=== PATIENT | female | born 1980 | race Caucasian/White ===

== ENCOUNTER 2021-01-23 16:10 | Emergency (ER) | payer OTHER ==
--- OUTSIDE RECORDS SUMMARY | 2021-01-23 16:13 | XMS REPORT | Continuity of Care Document ---
:[address] [facility] t Address [address] [place] [address] Dr. Tanner [address] [place] [id number] Care Team Providers Name Role Phone UNKNOWN Primary Care Physician Unavailable Problems This patient has no known problems. Allergies, Adverse Reactions, Alerts This patient has no known allergies or adverse reactions. Medications This patient has no known medications. Procedures This patient has no known procedures. Encounters Start End Encounter Admission Attending Care Care Encounter Source Date/Time Date/Time Type Type Clinicians Facility Department ID 2016-02-24 Inpatient C [facility] MED [id number] St. 16:45:00 [facility] Results This patient has no known results.
[2021-01-23 17:37] LABS: Urine Blood Trace-intact (Negative); Urine Glucose Negative (Negative); Urine Protein Negative (Negative); Urine Specific Gravity 1.015 (1.005-1.030)
[2021-01-23 17:56] LABS: Barbiturates NEGATIVE (NEGATIVE); Benzodiazepines NEGATIVE (NEGATIVE); Cocaine NEGATIVE (NEGATIVE); METHAMPHETAM NEGATIVE (NEGATIVE); Methadone NEGATIVE (NEGATIVE); Opiates NEGATIVE (NEGATIVE); Phencyclidine NEGATIVE (NEGATIVE); THC Cannibis NEGATIVE (NEGATIVE)
[2021-01-23 20:18] LABS: Absolute Lymphocytes (CBC) 1.4 K/uL (0.7-4.9); Basophils % 0.6 % (0-1.3); Hematocrit 38.2 % (36.0-45.0); Lymphocytes % 11.8 % (15.3-44.8); MPV 7.7 fL (7.6-11.3); RBC Red Blood Cell Count 3.74 M/uL (3.86-4.86)
[2021-01-23] MEDS ORDERED: LORAZEPAM 1 MG TABLET ONE (20:39)
[2021-01-23 21:18] LABS: Protime INR 0.97
[2021-01-23 21:42] LABS: ALT/SGPT 26 U/L (12-78); AST/SGOT 9 U/L (15-37); Albumin 3.6 g/dL (3.4-5.0); Alkaline Phosphatase 95 U/L (45-117); BUN Blood Urea Nitrogen 8 mg/dL (7-18); Bicarbonate 24 mmol/L (21-32); Bilirubin Direct < 0.1 mg/dL (0-0.2); Bilirubin Total 0.2 mg/dL (0.2-1.0); Glucose Level 94 mg/dL (74-106); Potassium 3.9 mmol/L (3.5-5.1); Protein, Total 7.1 g/dL (6.4-8.2); Sodium Level 143 mmol/L (136-145)
[2021-01-23 21:52] LABS: Lithium 0.8 mmol/L (0.6-1.2); Salicylates Level 7.8 mg/dL (2.8-20)
--- NOTE | 2021-01-24 01:19 | ER ---
Nurse's Notes [facility] Name: Shira Byers Age: 40 yrs Sex: Female : 1980 Arrival Date: 01/23/2021 Time: 16:17 Bed 15 Private MD: Diagnosis: Psychosis, Delusions Presentation: 01/23 17:05 Chief complaint: Patient states: "They got her on some psych medications, and they ss weren't working. They then changed it to Invega and Risperidone, but she isn't due for her next injection for 2 weeks and I don't think she can make it. She has been saying she chopped off my cousin's baby's head and put it in the closet, and she has never said stuff like that" Pt denies SI/HI at this time, but had believed she had killed the baby until she saw the baby today. Coronavirus screen: Client denies travel out of the [place] in the last 14 days. Ebola Screen: Patient denies exposure to infectious person. Patient denies travel to an Ebola-affected area in the 21 days before illness onset. Initial Sepsis Screen: Does the patient meet any 2 criteria? No. Patient's initial sepsis screen is negative. Does the patient have a suspected source of infection? No. Patient's initial sepsis screen is negative. Risk Assessment: Do you want to hurt yourself or someone else? Patient reports no desire to harm self or others. Onset of symptoms was December 2020. 17:05 Method Of Arrival: Ambulatory ss 17:05 Acuity: ADILSON 2 ss 22:28 Note Pt medicated with home night time meds witnessed by this RN. 600 mg [place] and 15 df1 mg Buspar. 23:30 Note Pt on phone for assessment with [facility]. df1 01/24 00:[address] Michele at bedside to discuss inpatient treatment. Pt is agreeable. df1 00:34 Note Pt given box lunch. df1 05:31 Note Nurse to nurse report given. Pt resting with eyes closed. Family at bedside. df1 06:31 Note Report given to Jeni at [facility]. Pt is accepted. Bed assignment upon 1 arrival. Triage Assessment: 01/23 21:03 General: Appears in no apparent distress. Behavior is cooperative, anxious. Pain: df1 Denies pain. 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 - Social history:: Smoking status: Patient reports the use of cigarette tobacco products, smokes three packs cigarettes per day. Screenin:03 Abuse screen: Denies threats or abuse. Nutritional screening: No deficits noted. df1 Tuberculosis screening: No symptoms or risk factors identified. Fall Risk None identified. Assessment: 01/24 00:32 General: Appears uncomfortable, Behavior is anxious. Pain: Denies pain. Neuro: No df1 deficits noted. Cardiovascular: No deficits noted. Respiratory: Airway is patent Trachea midline Respiratory effort is even, unlabored, Respiratory pattern is regular, symmetrical. GI: No deficits noted. : No deficits noted. EENT: No deficits noted. Derm: No deficits noted. Musculoskeletal: No deficits noted. 07:46 Reassessment: Patient AAO X 3, sitting up in bed, pleasant, cooperative and sl2 conversational. Patient denies any untoward symptoms at this time. Family present at bedside. Awaiting transportation for psychiatric transfer. 09:24 Reassessment: Nursing report given to Mita Godfrey at [facility] for possible transfer sl2 to that facility for psychiatric care and management of this patient. Psych: 01/23 21:07 [place] Suicide Severity Screening: In the past month, have you wished you were df1 or wished you could go to sleep and not wake up? Patient responds "No." "In the past month, have you actually had any thoughts of killing yourself?" Patient responds "no." "In your lifetime, have you ever done anything, started to do anything, or prepared to do anything to end your life?" Patient responds "no.". Subjective: Patient's mood is Pt states she is anxious with racing thoughts. Pt states concern for "the world" and comparing herself to "God". Pt given 1 mg Ativan PO for anxiety. Pt has not slept in 2 days. Objective: Patient is restless, Speech is normal, Affect is appropriate. Interventions: Removed personal items and placed in bag. Patient placed in hospital gown. Searched person for dangerous items. Urine collected and sent for urine drug test. Safety Checks: Personal items have been removed. Door is open. Visitors are present. Pt denies substance abuse. Commitment: Patient will be a voluntary commitment. Vital Signs: 17:05 BP 137 / 88; Pulse 109; Resp 18; Temp 97.3(TE); Pulse Ox 100% on R/A; Weight 76.2 kg; ss Height 5 ft. 2 in. (157.48 cm); Pain 0/10; 01/24 00:14 BP 136 / 86 LA; Pulse 93; Resp 20; Temp 99.1(O); Pulse Ox 99% on R/A; cs8 01/23 17:05 Body Mass Index 30.73 (76.20 kg, 157.48 cm) ED Course: 01/23 16:17 Patient arrived in ED. mr 17:09 Triage completed. ss 17:09 Arm band placed on right wrist. ss 19:28 Yulia Mann is Primary Nurse. df1 19:29 Bhupendra Michele MD is Attending Physician. mh7 21:02 Acetaminophen Sent. df1 21:02 Basic Metabolic Panel Sent. df1 21:02 ETOH Level Sent. df1 21:02 Hepatic Function Sent. df1 21:02 PT-INR Sent. df1 21:02 Ptt, Activated Sent. df1 21:02 Salicylate Sent. df1 21:03 Patient has correct armband on for positive identification. Placed in gown. Bed in low df1 position. Call light in reach. Side rails up X 1. Adult w/ patient. 21:03 No provider procedures requiring assistance completed. df1 01/24 03:40 SARS-COV-2 RT PCR Sent. df1 12:12 Patient did not have IV access during this emergency room visit. sl2 Administered Medications: 01/23 20:45 Drug: Ativan (LORazepam) 1 mg Route: PO; df1 01/24 09:26 Follow up: Response: No adverse reaction sl2 Outcome: 01:18 ER care complete, transfer ordered by . vijay 12:11 Transferred by ground EMS Note: Psychiatric facility sl2 12:11 Condition: stable 12:11 Discharge instructions given to patient, family, Instructed on the need for transfer, Demonstrated understanding of instructions, follow-up care. 12:12 Patient left the ED. sl2 Signatures: Agata RodríguezLa, RN RN Lois Morley 8 Bhupendra Michele MD MD [facility] Yulia Mann df1 Aminata Rick RN RN sl2 Corrections: (The following items were deleted from the chart) 01/23 21:13 21:02 LITHIUM+C.LAB.BRZ drawn and sent. df1 EDMS 01/24 06:31 01/23 21:04 Home Meds: oxcarbazipine; df1 df1 01/24 06:31 01/23 21:04 Home Meds: hydrozyzine; df1 df1 01/24 06:31 01/23 21:04 Home Meds: fluphenazine HCl 10 mg Oral tab 1 tab 2 times; df1 df1
--- NOTE | 2021-01-24 01:19 | EDPHYS ---
Physician Documentation [facility] Name: Shira Byers Age: 40 yrs Sex: Female : 1980 Arrival Date: 01/23/2021 Time: 16:17 Bed 15 Private MD: ED Physician Bhupendra Michele HPI: 01/23 20:08 This 40 yrs old Female presents to ER via Ambulatory with complaints of Mental mh7 Evaluation. 20:08 The patient presents to the emergency department with psychosis, has experienced mh7 auditory hallucinations, voices are telling patient to cause harm to someone else, has experienced visual hallucinations. 20:08 Onset: The symptoms/episode began/occurred 1 week(s) ago. Past psychiatric history: mh7 Prior diagnosis: bipolar disorder, schizophrenia, Psychiatric medications include: Risperidone, Primary psychiatric physician: [facility] psychiatrist, the patient has not had a prior suicide gesture, the patient does not have a previous inpatient psychiatric history, the patient's last psychiatric treatment was 2 week(s) ago. Associated signs and symptoms: Pertinent negatives: abdominal pain, anxiety, chest pain, chills, depression, fever, headache, homicidal ideation, nausea, night sweats, palpitations, paranoia, shortness of breath, substance abuse, suicide ideation, tremor, vomiting. Severity of symptoms: At their worst the symptoms were moderate 4 day(s) ago, in the emergency department the symptoms are unchanged. 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 - Social history:: Smoking status: Patient reports the use of cigarette tobacco products, smokes three packs cigarettes per day. ROS: 20:08 Constitutional: Negative for fever, chills, and weight loss, Eyes: Negative for injury, mh7 pain, redness, and discharge, ENT: Negative for injury, pain, and discharge, Neck: Negative for injury, pain, and swelling, Cardiovascular: Negative for chest pain, palpitations, and edema, Respiratory: Negative for shortness of breath, cough, wheezing, and pleuritic chest pain, Abdomen/GI: Negative for abdominal pain, nausea, vomiting, diarrhea, and constipation, Back: Negative for injury and pain, : Negative for injury, bleeding, discharge, and swelling, MS/Extremity: Negative for injury and deformity, Skin: Negative for injury, rash, and discoloration, Neuro: Negative for headache, weakness, numbness, tingling, and seizure, Allergy/Immunology: Negative for hives, rash, and allergies, Endocrine: Negative for neck swelling, polydipsia, polyuria, polyphagia, and marked weight changes, Hematologic/Lymphatic: Negative for swollen nodes, abnormal bleeding, and unusual bruising. Exam: 20:08 Head/Face: Normocephalic, atraumatic. Eyes: Pupils equal round and reactive to light, mh7 extra-ocular motions intact. Lids and lashes normal. Conjunctiva and sclera are non-icteric and not injected. Cornea within normal limits. Periorbital areas with no swelling, redness, or edema. Neck: Trachea midline, no thyromegaly or masses palpated, and no cervical lymphadenopathy. Supple, full range of motion without nuchal rigidity, or vertebral point tenderness. No Meningismus. Chest/axilla: Normal chest wall appearance and motion. Nontender with no deformity. No lesions are appreciated. Cardiovascular: Regular rate and rhythm with a normal S1 and S2. No gallops, murmurs, or rubs. Normal PMI, no JVD. No pulse deficits. Respiratory: Lungs have equal breath sounds bilaterally, clear to auscultation and percussion. No rales, rhonchi or wheezes noted. No increased work of breathing, no retractions or nasal flaring. Abdomen/GI: Soft, non-tender, with normal bowel sounds. No distension or tympany. No guarding or rebound. No evidence of tenderness throughout. 20:08 Skin: Warm, dry with normal turgor. Normal color with no rashes, no lesions, and no evidence of cellulitis. MS/ Extremity: Pulses equal, no cyanosis. Neurovascular intact. Full, normal range of motion. Neuro: Awake and alert, GCS 15, oriented to person, place, time, and situation. Cranial nerves II-XII grossly intact. Motor strength 5/5 in all extremities. Sensory grossly intact. Cerebellar exam normal. Normal gait. 20:08 Constitutional: The patient appears in no acute distress, alert, awake, anxious. 20:08 Psych: Behavior/mood is cooperative, anxious, Oriented to person, place, time, Patient has no thoughts/intents to harm self or others. Judgement / Insight is normal. Memory is normal. Delusions/hallucinations are present and described as Hearing voices telling her to have sex and possibly hurt other people. Also telling her that she has hurt family members.. Vital Signs: 17:05 BP 137 / 88; Pulse 109; Resp 18; Temp 97.3(TE); Pulse Ox 100% on R/A; Weight 76.2 kg; ss Height 5 ft. 2 in. (157.48 cm); Pain 0/10; 01/24 00:14 BP 136 / 86 LA; Pulse 93; Resp 20; Temp 99.1(O); Pulse Ox 99% on R/A; cs8 01/23 17:05 Body Mass Index 30.73 (76.20 kg, 157.48 cm) MDM: 01:15 Differential diagnosis: acute psychotic break, psychosis secondary to non-compliance, [facility] Substance abuse. Data reviewed: vital signs, nurses notes, old medical records, lab test result(s), CBC, drug level(s), acetaminophen, alcohol, lithium, salicylate, electrolytes, urinalysis, urine drug screen, UPT: negative EKG. Data interpreted: Pulse oximetry: on room air is 99 %. Interpretation: normal. Counseling: I had a detailed discussion with the patient and/or guardian regarding: the historical points, exam findings, and any diagnostic results supporting the discharge/admit diagnosis, the presence of at least one elevated blood pressure reading (>120/80) during this emergency department visit, lab results, the need to transfer to another facility, [facility] does not immediately have the required specialist. Response to treatment: the patient's symptoms have mildly improved after treatment. 01:18 Patient medically screened. [facility] 01/23 17:30 Order name: Urine Drug Screen; Complete Time: 19:35 01/23 17:38 Order name: Urine Dipstick-Ancillary; Complete Time: 19:35 [facility] 01/23 19:51 Order name: Acetaminophen; Complete Time: 22:20 [facility] 01/23 19:51 Order name: Basic Metabolic Panel; Complete Time: 22:20 [facility] 01/23 19:51 Order name: CBC with Diff; Complete Time: 22:20 [facility] 01/23 19:51 Order name: ETOH Level; Complete Time: 22:20 [facility] 01/23 19:51 Order name: Hepatic Function; Complete Time: 22:20 [facility] 01/23 19:51 Order name: PT-INR; Complete Time: 22:20 [facility] 01/23 19:51 Order name: Ptt, Activated; Complete Time: 22:20 [facility] 01/23 19:51 Order name: Salicylate; Complete Time: 22:20 [facility] 01/23 21:13 Order name: [place]; Complete Time: 22:20 [facility] 01/24 03:37 Order name: SARS-COV-2 RT PCR; Complete Time: 04:35 [facility] 01/23 17:30 Order name: Urine Dipstick-Ancillary (obtain specimen); Complete Time: 17:32 01/23 17:32 Order name: Urine Test (obtain specimen); Complete Time: 17:32 01/23 19:51 Order name: EKG; Complete Time: 19:51 [facility] 01/23 19:51 Order name: EKG - Nurse/Tech; Complete Time: 20:57 [facility] 01/23 19:51 Order name: IV Saline Lock; Complete Time: 20:57 [facility] 01/23 19:51 Order name: Labs collected and sent; Complete Time: 21:02 [facility] 01/23 19:51 Order name: Suicide Screening ([place]); Complete Time: 23:21 [facility] 01/23 20:26 Order name: Labs - recollect needed: everything but the lavender; Complete Time: 21:02 iw 01/24 05:32 Order name: Diet Regular; Complete Time: 05:32 df1 Administered Medications: 01/23 20:45 Drug: Ativan (LORazepam) 1 mg Route: PO; df1 01/24 09:26 Follow up: Response: No adverse reaction sl2 Disposition Summary: 01/24/21 01:18 Transfer Ordered Transfer Location: [facility] Reason: Higher level of care mh7 Condition: Stable mh7 Problem: an acute exacerbation mh7 Symptoms: have improved mh7 Accepting Physician: Dr. Maravilla(01/24/21 12:12) sl2 Diagnosis - Psychosis, Delusions [facility] Forms: - Medication Reconciliation Form 7 - SBAR form [facility] Signatures: Dispatcher [employer] EDMS Cheryl Poe RN RN La Logan RN RN Bhupendra Michele MD MD [facility] Yulia Mann df1 Aminata Rick RN RN sl2 Corrections: (The following items were deleted from the chart) 01/23 21:13 20:54 LITHIUM+C.LAB.BRZ ordered. EDMS EDMS 01/24 03:37 01:30 CORONAVIRUS+MR.LAB.BRZ ordered. EDIA EDMS 06:31 01/23 21:04 Home Meds: oxcarbazipine; df1 df1 01/24 06:31 01/23 21:04 Home Meds: hydrozyzine; df1 df1 01/24 06:31 01/23 21:04 Home Meds: fluphenazine HCl 10 mg Oral tab 1 tab 2 times; df1 1 01/24 06:37 01:18 [place] [id number] 12:12 06:37 Dr. Maravilla [facility]2
[2021-01-24 12:21] VITALS: BP 136/86; TEMP 99.1; O2SAT 99
== END 2021-01-24 12:12 ==
LOC: ER 16:10
DX: F29 Unspecified psychosis not due to a substance or known physiological condition (principal); F22 Delusional disorders; F25.0 Schizoaffective disorder, bipolar type; F17.210 Nicotine dependence, cigarettes, uncomplicated; Z20.822 Contact with and (suspected) exposure to COVID-19
CPT/HCPCS: 93005; 85025; 80048; 36415; 80320; 80329 ×2; 85610; 80178; 80076; 85730; 81003; 80307; 99285; U0003

== ENCOUNTER 2023-07-10 14:34 | Emergency (ER) | payer OTHER ==
--- OUTSIDE RECORDS SUMMARY | 2023-07-10 14:36 | XMS REPORT | Continuity of Care Document ---
Author Name Unknown Address [address] [place] [address] [facility] Address [address] [facility] [address] [place] [address] Care Team Providers Care Chain Machine Operator Name Role Phone UNKNOWN, REFFERING Primary Care Physician Lori knight Encounters Start Date/Time End Date/Time Encounter Type Admission Type Attending Clinicians Care Facility Care Department Encounter ID Source 2016-02-24 16:45:00 Inpatient C [facility] [id number] [facility] Results Test Description Test Time Test Comments Results Result Co mments Source CULTURE, URINE 2022-10-13 09:47:00 SPECIMEN NUMBER: [id number] CULTURE, URINE SPECIMEN NUMBER: [id number] SPECIMEN COMMENT: URINE SOURCE: URINE REPORT STATUS: FINAL FINAL REPORT: 10/13/2022 50-100,000 CFU/ML MIXED MICROBIAL POPULATION PRESENT, NO PREDOMINATING ORGANISMS;PROBABLE CONTAMINANTS. UNLESS OTHERWISE INDICATED, ALL TESTING PERFORMED AT [facility] [address] [place] [address] COMMERCIAL REVIEW APPRAISER: DHAVAL LAWRENCE M.D. CLIA NUMBER [id number] [facility] [place]. [id number] HPV HIGH RISK WITH GENOTYPE, [id number] 14:07:35* Test Item Value Reference Range Interpretation Comme nts HPV HIGH RISK INTERP (test code = 35465) NEGATIVE NEGATIVE HPV 16 (test code = 12186) NEGATIVE HPV 18 (test code = 53064) NEGATIVE HPV, HR, OTHER GENOTYPES (test code = 31307) NEGATIVE Testing methodol ogy is real-time PCR utilizing hydrolysis probes with the [employer]et Paty 4800 system. The test individually detects genotypes 16 and 18, as well as the other 12 high risk types (31,33,35,39,45,51,52,56 ,58,59,66,68). The expected result is negative. A negative result does not rule out the presence of HPV not included in the genotype set, a low level of infection or specimen sampling error. [facility] has important pathology staff changes effective 04/27/2022. New pathology staff will provide uninterrupted, excellent patient care and clinical consultation. See URL: [email or web address]. UNLESS OTHERWISE INDICATED, ALL TESTING PERFORMED AT [facility] [address] [place] [address] CLIA: [id number], CAP: [id number]
--- NOTE | 2023-07-10 15:15 | RAD REPORT ---
EXAM DESCRIPTION: CT - CTHCSPWOC - 07/10/2023 2:57 pm CLINICAL HISTORY: Trauma, head and neck injury. fall with LOC COMPARISON: CT HEAD CSPINE MPR WO CONTRAST dated 07/02/2012; NECK SOFT TISSUE W WO CONTRAS dated 012 TECHNIQUE: Axial 5 mm thick images of the head were obtained. Axial 2 mm thick images of the cervical spine were obtained with sagittal and coronal reconstruction images generated and reviewed. All CT scans are performed using dose optimization technique as appropriate and may include automated exposure control or mA/KV adjustment according to patient size. FINDINGS: CT HEAD WITHOUT CONTRAST: No acute hemorrhage, hydrocephalus or extra-axial collection is identified.No areas of brain edema or midline shift. The paranasal sinuses and mastoids are clear.The calvarium is intact. CT CERVICAL SPINE WITHOUT CONTRAST: No fracture or subluxation.No prevertebral soft tissues swelling is identified. IMPRESSION: No acute intracranial or cervical spine findings.
[2023-07-10] MEDS ORDERED: KETOROLAC 30 MG/ML INJ ONE (15:21)
--- NOTE | 2023-07-10 15:22 | RAD REPORT ---
EXAM DESCRIPTION: RAD - Chest Single View - 07/10/2023 3:14 pm CLINICAL HISTORY: fall, sob COMPARISON: CHEST SINGLE VIEW dated 04/29/2009 FINDINGS: Lines: None. Lungs: No evidence of edema or pneumonia. Pleural: No significant pleural effusions or pneumothorax. Cardiac: The heart size is within normal limits. Mediastinum: Within normal limits. Bones: No acute fractures. Other: None IMPRESSION: No acute cardiopulmonary disease.
[2023-07-10 15:24] LABS: Absolute Lymphocytes (CBC) 1.5 K/uL (0.7-4.9); Absolute Monocytes 0.8 K/uL (0.1-1.3); Absolute Neutrophil 8.7 K/uL (1.8-8.0); Basophils % 0.4 % (0-1.3); Eosinophils % 0.1 % (0-4.4); Hematocrit 38.4 % (36.0-45.0); Hemoglobin 13.2 g/dL (12.0-15.0); Lymphocytes % 13.3 % (15.3-44.8); MCH 35.3 pg (27.0-35.0); MCHC 34.3 g/dL (32.0-36.0); MCV 103.1 fL (80-100); MPV 7.5 fL (7.6-11.3); Monocytes % 6.9 % (3.3-12.3); Neutrophils % 79.3 % (41.7-73.7); Platelets 340 thou/uL (152-406); RBC Red Blood Cell Count 3.73 M/uL (3.86-4.86); Red Cell Distribution Width 14.1 % (12.1-15.2)
[2023-07-10 15:34] LABS: PT Prothrombin Time 10.4 SECONDS (9.5-12.5); PTT, Activated Partial Thromb 28.3 SECONDS (24.3-36.9); Protime INR 0.94
[2023-07-10 15:44] LABS: Albumin 3.9 g/dL (3.4-5.0); Albumin/Globulin Ratio 1.4 (1.1-1.8); Anion Gap 10.4 mEq/L (5.0-15.0); Bilirubin Direct 0.2 mg/dL (0-0.2); Bilirubin Indirect, Calculated 0.2 mg/dL (0.2-0.8); Bilirubin Total 0.4 mg/dL (0.2-1.0); Globulin 2.7 g/dL (2.3-3.5); Potassium 3.4 mEq/L (3.5-5.1); Protein, Total 6.6 g/dL (6.4-8.2)
[2023-07-10 15:54] LABS: Barbiturates NEGATIVE (NEGATIVE); Benzodiazepines NEGATIVE (NEGATIVE); Cocaine NEGATIVE (NEGATIVE); METHAMPHETAM NEGATIVE (NEGATIVE); Methadone NEGATIVE (NEGATIVE); Opiates NEGATIVE (NEGATIVE); Phencyclidine NEGATIVE (NEGATIVE); THC Cannibis NEGATIVE (NEGATIVE)
[2023-07-10] MEDS ORDERED: HYDROCODONE/APAP 5/325 MG TAB ONE (16:19)
[2023-07-10] MEDS ORDERED: TDAP (DIPHTH,PERTUSS(ACELL),TET VAC) 0.5 ML VIAL IMVAC ONE (16:20)
[2023-07-10] MEDS ORDERED: LIDOCAINE 2% W/EPI 1:200,000 MPF 20 ML VIAL IM ONE (16:36)
--- NOTE | 2023-07-10 17:00 | ER ---
Nurse's Notes [facility] Name: Shira Byers Age: 42 yrs Sex: Female : 1980 Arrival Date: 07/10/2023 Time: 14:34 Bed 19 Private MD: Diagnosis: Chin laceration;Fall Presentation: 07/09 14:41 Chief complaint: EMS states: walking on sidewalk and tripped, hit chin on concrete and me1 was found unconscious. C collar on and laceration noted to chin. Coronavirus screen: Vaccine status: Patient reports receiving the 2nd dose of the covid vaccine. Ebola Screen: No symptoms or risks identified at this time. Initial Sepsis Screen: Does the patient meet any 2 criteria? No. Patient's initial sepsis screen is negative. Does the patient have a suspected source of infection? No. Patient's initial sepsis screen is negative. Risk Assessment: Do you want to hurt yourself or someone else? Patient reports no desire to harm self or others. Onset of symptoms was July 10, 2023. 14:41 Method Of Arrival: EMS: [facility] 14:41 Acuity: ADILSON 3 me1 Triage Assessment: 14:44 General: Appears uncomfortable, unkempt, well developed, well nourished, Behavior is me1 cooperative, appropriate for age, restless. Pain: Complains of pain in chin Pain does not radiate. Pain currently is 10 out of 10 on a pain scale. Quality of pain is described as sharp, Pain began suddenly, Is continuous. EENT: No signs and/or symptoms were reported regarding the EENT system. Neuro: Level of Consciousness is awake, alert, obeys commands, Oriented to person, place, time, situation, Appropriate for age. Cardiovascular: Capillary refill < 3 seconds Patient's skin is warm and dry. Respiratory: Airway is patent Respiratory effort is even, unlabored, Respiratory pattern is regular, symmetrical. GI: No signs and/or symptoms were reported involving the gastrointestinal system. : No signs and/or symptoms were reported regarding the genitourinary system. Derm: Skin is healthy with good turgor, Skin is pink, warm \T\ dry. Musculoskeletal: c collar in place. Injury Description: fall. Hit chin on concrete and was found unconscious. 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 - Infectious Disease History:: Denies. - Social history:: Smoking status: Patient reports the use of cigarette tobacco products, smokes one pack cigarettes per day. Screenin:47 [facility] ED Fall Risk Assessment (Adult) History of falling in the last 3 months, me1 including since admission Yes- single mechanical fall (1 pt) Confusion or Disorientation No (0 pts) Intoxicated or Sedated No (0 pts) Impaired Gait No (0 pts) Mobility Assist Device Used No (0 pt) Altered Elimination No (0 pt) Score/Fall Risk Level 0 - 2 = Low Risk Maintained a safe environment, Provided non-skid footwear, Hourly rounding (assess needs \T\ fall precautionary measures) done. Abuse screen: Denies threats or abuse. Nutritional screening: No deficits noted. Tuberculosis screening: No symptoms or risk factors identified. Assessment: 14:47 General: See triage assessment. . me1 16:26 Reassessment: No changes from previously documented assessment. Patient and/or family ll1 updated on plan of care and expected duration. Pain level reassessed. Patient is alert, oriented x 3, equal unlabored respirations, skin warm/dry/pink. 16:30 Reassessment: No changes from previously documented assessment. C-collar removed. ll1 Tolerated well. PMS intact all 4 extremities. Vital Signs: 14:41 BP 121 / 90; Pulse 118; Resp 22; Temp 97.9; Pulse Ox 99% on R/A; Weight 56.7 kg; Height me1 5 ft. 2 in. ; Pain 10/10; 15:00 BP 121 / 75; Pulse 108; Resp 20; Pulse Ox 99% on R/A; me1 16:00 BP 126 / 88; Pulse 105; Resp 19; Pulse Ox 99% on R/A; me1 17:00 BP 130 / 90; Pulse 109; Resp 20; Pulse Ox 99% ; me1 14:41 Body Mass Index 22.86 (56.70 kg, 157.48 cm) la1 14:41 Pain Scale: Adult me1 ED Course: 14:41 Patient arrived in ED. ms3 14:41 Chester Coronado DO is Attending Physician. ms3 14:41 Karla Jorge, LEONARDO is Primary Nurse. me1 14:44 Triage completed. me1 14:44 Arm band placed on Patient placed in an exam room. me1 14:47 Patient has correct armband on for positive identification. Bed in low position. Call me1 light in reach. Side rails up X2. Provided Education on: POC. Verbalized understanding. . 14:47 No provider procedures requiring assistance completed. me1 14:59 CT Head C Spine In Process Unspecified. EDMS 15:14 Initial lab(s) drawn, by me, sent to lab. Inserted saline lock: 20 gauge in right la1 antecubital area, using aseptic technique. 15:15 CXR XRAY In Process Unspecified. EDMS 15:27 Urine Drug Screen Sent. me1 15:27 Urine collected: straight cath specimen, clear. me1 16:35 Wound care:. Wound care: cleaned face/neck of dried blood. Tolerated well. Son at BS. ll1 17:09 IV discontinued, intact, bleeding controlled, No redness/swelling at site. Pressure me1 dressing applied. Administered Medications: 15:27 Drug: Ketorolac IVP 10 mg 10 mg IVP once Route: IVP; Site: right antecubital; me1 15:50 Follow up: Response: No adverse reaction; Pain is decreased me1 16:24 Drug: HYDROcodone-acetaminophen PO 5 mg-325 mg 1 tabs PO once {Note: RASS 0.} Route: PO;me1 17:03 Follow up: Response: No adverse reaction; Pain is decreased ll1 17:03 Follow up: Response: No adverse reaction; Pain is decreased me1 16:24 Drug: Boostrix Tdap IM 0.5 ml IM once; as a single dose {Note: lot [id number] exp 03/14/25.} ll1 Route: IM; Site: right vastus lateralis; 17:03 Follow up: Response: No adverse reaction me1 Medication: 14:47 VIS not applicable for this client. me1 Outcome: 16:59 Discharge ordered by . ms3 17:09 Patient left the ED. me1 17:09 Discharged to home ambulatory, with family, 17:09 Condition: stable 17:09 Discharge instructions given to patient, family, Instructed on discharge instructions, follow up and referral plans. Demonstrated understanding of instructions, follow-up care, Signatures: Dispatcher [employer] Dino Khanna RN RN 1 Chester Coronado DO DO ms3 Karla Jorge RN RN me1 Corrections: (The following items were deleted from the chart) 16:25 16:24 Boostrix Tdap IM 0.5 ml IM in right vastus lateralis [place] [id number] 22:16 17:00 BP 130 / 90; Pulse 109bpm; Resp 20bpm; Pulse Ox 99%; ll1 [facility] 22:16 16:00 BP 126 / 88; Pulse 105bpm; Resp 19bpm; Pulse Ox 99% RA; 1 [facility] 22:16 17:03 Response: No adverse reaction; Pain is decreased [place] [id number] 22:16 17:03 Response: No adverse reaction [place] [id number] 22:17 17:09 IV discontinued, intact, bleeding controlled, No redness/swelling at site. la1 Pressure dressing applied, [facility] 22:18 17:09 Discharged to home ambulatory, with family, [place] [id number] 22:18 17:09 Condition: stable [place] [address] 22:18 17:09 Discharge instructions given to patient, family, Instructed on discharge [facility] instructions, follow up and referral plans. Demonstrated understanding of instructions, follow-up care, [facility] 22:18 17:10 Patient left the ED. [place] [id number]
--- NOTE | 2023-07-10 17:00 | EDPHYS ---
Physician Documentation [facility] Name: Shira Byers Age: 42 yrs Sex: Female : 1980 Arrival Date: 07/10/2023 Time: 14:34 Bed 19 Private MD: ED Physician Chester Coronado HPI: 07/09 17:03 This 42 yrs old Female presents to ER via EMS with complaints of fall. ms3 17:03 42-year-old female with past medical history of bipolar, depression, schizophrenia, ms3 hypertension presents to the emergency department via [facility] status post fall. EMS notes patient was walking to her physician's office when she tripped over a rock with loss of consciousness. Patient denies nausea, vomiting.. 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 - Infectious Disease History:: Denies. - Social history:: Smoking status: Patient reports the use of cigarette tobacco products, smokes one pack cigarettes per day. ROS: 17:03 Constitutional: Negative for fever, and chills. Neck: Negative for injury, pain, and ms3 swelling, Cardiovascular: Negative for chest pain, and palpitations. Respiratory: Negative for shortness of breath, cough, wheezing, and pleuritic chest pain, Abdomen/GI: Negative for abdominal pain, nausea, vomiting, diarrhea, and constipation, MS/Extremity: Negative for injury and deformity, 17:03 Skin: Positive for laceration(s), Exam: 16:13 ECG was reviewed by the Attending Physician. ms3 17:03 Constitutional: This is a well developed, well nourished patient who is awake, alert, ms3 and in no acute distress. Neck: Trachea midline, no cervical lymphadenopathy. Supple, full range of motion without nuchal rigidity, or vertebral point tenderness. No Meningismus. Chest/axilla: Normal chest wall appearance and motion. Nontender with no deformity. Cardiovascular: Regular rate and rhythm with a normal S1 and S2. No gallops, murmurs, or rubs. Normal PMI, no JVD. No pulse deficits. Respiratory: Lungs have equal breath sounds bilaterally, clear to auscultation and percussion. No rales, rhonchi or wheezes noted. No increased work of breathing, no retractions or nasal flaring. Abdomen/GI: Soft, non-tender, with normal bowel sounds. No distension or tympany. No guarding or rebound. No evidence of tenderness throughout. 17:03 Skin: 3 cm chin laceration. Vital Signs: 14:41 BP 121 / 90; Pulse 118; Resp 22; Temp 97.9; Pulse Ox 99% on R/A; Weight 56.7 kg; Height me1 5 ft. 2 in. ; Pain 10/10; 15:00 BP 121 / 75; Pulse 108; Resp 20; Pulse Ox 99% on R/A; me1 16:00 BP 126 / 88; Pulse 105; Resp 19; Pulse Ox 99% on R/A; me1 17:00 BP 130 / 90; Pulse 109; Resp 20; Pulse Ox 99% ; me1 14:41 Body Mass Index 22.86 (56.70 kg, 157.48 cm) me1 14:41 Pain Scale: Adult me1 Laceration: 17:03 Wound Repair of 3cm ( 1.2in ) subcutaneous laceration to chin. Linear shaped.. Distal ms3 neuro/vascular/tendon intact. Anesthesia: Local anesthetic administered with 3 mls of 1% lidocaine w/ Epi. Wound prep: Simple cleansing by me. Skin closed with 3 5-0 Prolene using simple sutures and sterile technique. Patient tolerated well. MDM: 14:41 Patient medically screened. ms3 17:03 Differential diagnosis: abrasion, closed head injury, contusion, fracture, laceration. ms3 Data reviewed: vital signs, nurses notes, lab test result(s), EKG, radiologic studies, and as a result, I will discharge patient. I considered the following discharge prescriptions or medication management in the emergency department Medications were administered in the Emergency Department. See MAR. Independent interpretation of the following test(s) in the Emergency Department EKG: See my EKG interpretation above. Historians other than the Patient: EMS: [facility]. Care significantly affected by the following chronic conditions: Hypertension. Counseling: I had a detailed discussion with the patient and/or guardian regarding the historical points, exam findings, and any diagnostic results supporting the discharge/admit diagnosis, lab results, radiology results, the need for outpatient follow up, to return to the emergency department if symptoms worsen or persist or if there are any questions or concerns that arise at home. ED course: Discussed labs, imaging with patient. Patient to follow-up with primary care physician in 2 to 3 days. Patient understands and agrees with plan. All questions were answered. Return precautions discussed include worsening symptoms, or any other concerns. Sutures to removed in 7 days.. 07/09 14:42 Order name: BMP; Complete Time: 16: ms3 07/09 14:42 Order name: CBC with Diff; Complete Time: 16: ms3 07/09 14:42 Order name: Ethanol; Complete Time: 16: ms3 07/09 14:42 Order name: Hepatic Function; Complete Time: 16: ms3 07/09 14:42 Order name: Protime (+inr); Complete Time: 16: ms3 07/09 14:42 Order name: Ptt, Activated; Complete Time: 16: ms3 07/09 14:42 Order name: Urine Drug Screen; Complete Time: 16: ms3 07/09 14:42 Order name: CK; Complete Time: 16: ms3 07/09 14:42 Order name: Troponin High Sensitivity; Complete Time: 16: ms3 07/09 14:42 Order name: CT Head C Spine; Complete Time: 15:23 ms3 07/09 14:42 Order name: CXR XRAY; Complete Time: 15:23 ms3 07/09 14:42 Order name: EKG; Complete Time: 14:43 ms3 07/09 14:42 Order name: EKG - Nurse/Tech; Complete Time: 15:30 ms3 07/09 14:42 Order name: IV Saline Lock; Complete Time: 15:30 ms3 07/09 14:42 Order name: Labs collected and sent; Complete Time: 15:27 ms3 07/09 14:42 Order name: O2 Per Protocol; Complete Time: 15:27 ms3 07/09 14:42 Order name: O2 Sat Monitoring; Complete Time: 15:27 ms3 07/09 14:42 Order name: Suicide Screening ([place]); Complete Time: 15:27 ms3 EC: Rate is 107 beats/min. Rhythm is regular. QRS [place] is Normal. MS interval is normal. ms3 QRS interval is normal. Clinical impression: Sinus tachycardia. Interpreted by me. Reviewed by me. Administered Medications: 15:27 Drug: Ketorolac IVP 10 mg 10 mg IVP once Route: IVP; Site: right antecubital; me1 15:50 Follow up: Response: No adverse reaction; Pain is decreased me1 16:24 Drug: HYDROcodone-acetaminophen PO 5 mg-325 mg 1 tabs PO once {Note: RASS 0.} Route: PO;me1 17:03 Follow up: Response: No adverse reaction; Pain is decreased ll1 17:03 Follow up: Response: No adverse reaction; Pain is decreased me1 16:24 Drug: Boostrix Tdap IM 0.5 ml IM once; as a single dose {Note: lot [id number] exp 03/14/25.} ll1 Route: IM; Site: right vastus lateralis; 17:03 Follow up: Response: No adverse reaction me1 Disposition Summary: 07/10/23 16:59 Discharge Ordered Notes: Location: Home ms3 Condition: Stable ms3 Diagnosis - Chin laceration ms3 - Fall ms3 Followup: ms3 - With: Private Physician - When: 2 - 3 days - Reason: Recheck today's complaints Discharge Instructions: - Discharge Summary Sheet ms3 - Facial Laceration, [id number] ms3 Forms: - Medication Reconciliation Form ms3 - Antibiotic Education ms3 - Prescription Opioid Use ms3 - Patient Portal Instructions ms3 - Leadership Thank You Letter ms3 Signatures: Dispatcher [employer] Dino Khanna RN RN 1 Chester Coronado DO DO ms3 Karla Jorge RN RN me1
[2023-07-10 17:27] VITALS: BP 130/90; TEMP 97.9; O2SAT 99
--- NOTE | 2023-07-11 11:00 | EKG ---
Test Date: 2023-07-10 Test Time: 15:34:05 [place]: MEASUREMENT RESULTS: Intervals: Rate: 107 W[place]: 142 QRSD: 66 QT: 358 QTc: 477 [place]: P: 69 W[place]: 142 QRS: 93 T: 81 INTERPRETIVE STATEMENTS: Sinus tachycardia Septal infarct, age undetermined Abnormal ECG Compared to ECG 01/23/2021 20:54:07 Myocardial infarct finding now present Sinus rhythm no longer present T-wave abnormality no longer present Prolonged QT interval no longer present Electronically Signed On 07-11-23 10:59:18 CDT by Mike Barahona
== END 2023-07-10 17:10 | disposition home or self-care (01) ==
LOC: ER 14:34
PROC: 0HQ1XZZ Repair Face Skin, External Approach (ICD-10-PCS; principal; 2023-07-10)
DX: S01.81XA Laceration without foreign body of other part of head, initial encounter (principal); W18.09XA Striking against other object with subsequent fall, initial encounter; F17.210 Nicotine dependence, cigarettes, uncomplicated
CPT/HCPCS: 36415; 70450; 71045; 72125; 80048; 80076; 80307; 82077; 82550; 84484; 85025; 85610; 85730; 93005; 96372; 96374; 99285

== ENCOUNTER 2023-12-04 00:14 | Emergency (ER) | payer OTHER ==
--- OUTSIDE RECORDS SUMMARY | 2023-12-04 00:18 | XMS REPORT | Continuity of Care Document ---
Author Name Unknown Address [address] [place] [address] [facility] Address [address] [facility] [address] [place] [address] Care Team Providers Care Licensed Audiologist Name Role Phone UNKNOWN, REFFERING Primary Care Physician Lori knight Encounters Start Date/Time End Date/Time Encounter Type Admission Type Attending Clinicians Care Facility Care Department Encounter ID Source 2016-02-24 16:45:00 Inpatient [facility] [id number] [facility] Results Test Description Test Time Test Comments Results Result Co mments Source CULTURE, URINE 2022-10-13 09:47:00 SPECIMEN NUMBER: [id number] CULTURE, URINE SPECIMEN NUMBER: [id number] SPECIMEN COMMENT: URINE SOURCE: URINE REPORT STATUS: FINAL FINAL REPORT: 10/13/2022 50-100,000 CFU/ML MIXED MICROBIAL POPULATION PRESENT, NO PREDOMINATING ORGANISMS;PROBABLE CONTAMINANTS. UNLESS OTHERWISE INDICATED, ALL TESTING PERFORMED AT [facility] [address] [place] [address] DIGITAL MEDIA PRODUCER: DHAVAL LAWRENCE M.D. CLIA NUMBER [id number] [place] [id number] HPV HIGH RISK WITH GENOTYPE, [id number] 14:07:35* Test Item Value Reference Range Interpretation Comme nts HPV HIGH RISK INTERP (test code = 74899) NEGATIVE NEGATIVE HPV 16 (test code = 93895) NEGATIVE HPV 18 (test code = 11821) NEGATIVE HPV, HR, OTHER GENOTYPES (test code = 18194) NEGATIVE Testing methodol ogy is real-time PCR [...] level of infection or specimen sampling error. [facility] has important pathology staff changes effective 04/27/2022. New pathology staff will provide uninterrupted, excellent patient care and clinical consultation. See URL: [email or web address]. UNLESS OTHERWISE INDICATED, ALL TESTING PERFORMED AT [facility] [address] [place] [address] CLIA: [id number], CAP: [id number]
[2023-12-04] MEDS ORDERED: PANTOPRAZOLE 40 MG INJ ONE ×2 (00:51→02:00)
[2023-12-04] MEDS ORDERED: DIPHENHYDRAMINE 50 MG/ML VIAL ONE (00:51)
[2023-12-04] MEDS ORDERED: droPERidol 5 MG/2 ML VIAL ONE (00:51)
[2023-12-04] MEDS ORDERED: NA CHLORIDE 0.9% 1,000 ML ONE ×2 (00:51→02:01)
[2023-12-04 01:03] LABS: Absolute Basophils 0.1 K/uL (0-0.5); Absolute Lymphocytes (CBC) 2.1 K/uL (0.7-4.9); Absolute Monocytes 0.9 K/uL (0.1-1.3); Absolute Neutrophil 9.6 K/uL (1.8-8.0); Basophils % 0.5 % (0-1.3); Eosinophils % 0.2 % (0-4.4); Hematocrit 31.7 % (36.0-45.0); Hemoglobin 10.6 g/dL (12.0-15.0); Lymphocytes % 16.6 % (15.3-44.8); MCH 35.5 pg (27.0-35.0); MCHC 33.4 g/dL (32.0-36.0); MCV 106.5 fL (80-100); MPV 6.9 fL (7.6-11.3); Monocytes % 6.8 % (3.3-12.3); Neutrophils % 75.9 % (41.7-73.7); Platelets 590 thou/uL (152-406); RBC Red Blood Cell Count 2.97 M/uL (3.86-4.86); Red Cell Distribution Width 15.2 % (12.1-15.2)
[2023-12-04 01:07] LABS: PT Prothrombin Time 11.6 SECONDS (9.4-12.5); PTT, Activated Partial Thromb 35.3 SECONDS (24.3-36.9); Protime INR 1.04
[2023-12-04 01:16] LABS: Albumin 2.9 g/dL (3.4-5.0); Albumin/Globulin Ratio 0.8 (1.1-1.8); Anion Gap 11.2 mEq/L (5.0-15.0); Bilirubin Total 0.2 mg/dL (0.2-1.0); Globulin 3.5 g/dL (2.3-3.5); Potassium 3.2 mEq/L (3.5-5.1); Protein, Total 6.4 g/dL (6.4-8.2)
[2023-12-04] MEDS ORDERED: MORPHINE 4 MG/ML SYR ONE (01:36)
[2023-12-04] MEDS ORDERED: KCL 20 MEQ/100 mL IVPB 100 ML IV ONE (01:36)
[2023-12-04 01:59] LABS: Blood Morphology Comment NOTED (NOT SEEN); Macrocytosis SLIGHT; Platelet Estimate INCR; White Blood Cell Scan OK (OK)
--- NOTE | 2023-12-04 02:00 | EDPHYS ---
Physician Documentation [facility] Name: Shira Byers Age: 43 yrs Sex: Female : 1980 Arrival Date: 12/04/2023 Time: 00:14 Bed 19 Private MD: ED Physician Samson Garcia HPI: 12/03 00:41 This 43 yrs old Female presents to ER via EMS with complaints of Abdominal ec2 Pain. 00:41 Patient arrives today for evaluation of abdominal pain as well as dark stools. Reports ec2 that she has been taking Pepto-Bismol. States she is having abdominal pain, scheduled to have outpatient endoscopy. Patient reports some nausea as well. . 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 - Infectious Disease History:: Denies. - Social history:: Smoking status: Patient denies any tobacco usage or history of. ROS: 00:41 Constitutional: as per hpi ec2 Exam: 00:41 Constitutional: GEN: NAD Head: atraumatic Eyes: EOMI Ears: External ears are ec2 normal. CV: regular rate LUNGS: no respiratory distress ABD: non-distended, soft, not guarding, not rigid SKIN: no evidence of rashes MSK: no evidence of trauma Vital Signs: 00:17 BP 158 / 102; Pulse 102; Resp 18; Temp 98.6; Pulse Ox 100% ; Pain 10/10; cp4 01:00 BP 84 / 53; Pulse 127; Resp 20; Pulse Ox 97% ; cp4 02:00 BP 108 / 72; Pulse 118; Resp 20; Pulse Ox 97% ; cp4 02:43 BP 110 / 78; ec2 03:00 BP 103 / 78; Pulse 102; Resp 20; Pulse Ox 100% ; cp4 04:00 BP 117 / 79; Pulse 108; Resp 20; Pulse Ox 100% ; cp4 05:00 BP 101 / 79; Pulse 107; Resp 18; Pulse Ox 99% ; cp4 06:00 BP 112 / 78; Pulse 102; Resp 18; Pulse Ox 98% ; cp4 00:17 Pain Scale: Adult cp4 MDM: 00:29 Patient medically screened. ec2 00:41 Data reviewed: vital signs. ED course: Patient arrives today for generalized abdominal ec2 pain along with dark stools. Examination remarkable for well-appearing nontoxic dividual recently tachycardic and otherwise in no acute distress. Will obtain lab work, CT imaging, give the patient droperidol for nausea, Benadryl as well as crystalloid. . 01:32 ED course: CBC shows slight anemia, slight leukocytosis noted. Coag profile ec2 nonactionable. Metabolic profile shows slight hypokalemia with potassium of 3.2. Will give the patient potassium. . 01:59 ED course: Patient with a bout of hematemesis, will start patient on Protonix drip, ec2 will transfer to GI capable facility.. 04:05 ED course: I discussed the case w/ Dr. Brandon at [facility] who agrees to accept the pt for ec2 admission . 12/03 00:30 Order name: CBC with Diff; Complete Time: 02:43 ec2 12/03 00:30 Order name: CMP; Complete Time: 01:31 ec2 12/03 00:30 Order name: Lipase; Complete Time: 01:31 ec2 12/03 00:30 Order name: PT-INR; Complete Time: 01:31 ec2 12/03 00:30 Order name: Ptt, Activated; Complete Time: 01:31 ec2 12/03 00:30 Order name: Type And Screen; Complete Time: 01:56 ec2 12/03 01:09 Order name: CBC Smear Scan; Complete Time: 02:43 EDMS 12/03 00:30 Order name: CT Abd/Pelvis - Without Contrast ec2 12/03 00:30 Order name: IV Saline Lock; Complete Time: 00:56 ec2 12/03 00:30 Order name: Labs collected and sent; Complete Time: 00:56 ec2 12/03 01:34 Order name: NPO; Complete Time: 01:34 ec2 Administered Medications: 00:57 Drug: NS 0.9% IV 1000 ml IV at 1 bolus Per protocol; 1000 mL bolus Route: IV; Rate: 1 cp4 bolus; Site: left antecubital; 02:22 Follow up: Response: No adverse reaction; IV Status: Infusion continued cp4 00:57 Drug: Pantoprazole IVP 80 mg IVP once Route: IVP; Site: left antecubital; cp4 01:20 Follow up: Response: No adverse reaction cp4 00:57 Drug: Droperidol IVP 1.25 mg IVP once Route: IVP; Site: left antecubital; cp4 01:20 Follow up: Response: No adverse reaction cp4 00:57 Drug: diphenhydrAMINE IVP 50 mg IVP once Route: IVP; Site: left antecubital; cp4 01:20 Follow up: Response: No adverse reaction cp4 01:46 Drug: Potassium Chloride IV 20 mEq IV at calculated rate once; administer over 1-2 cp4 hours Route: IV; Rate: calculated rate; Site: left antecubital; 04:39 Follow up: Response: No adverse reaction; IV Status: Completed infusion cp4 01:46 Drug: morphine IVP or IV 4 mg IVP once over 4 mins Route: IVP; Infused Over: 4 mins; cp4 Site: left antecubital; 02:22 Follow up: Response: No adverse reaction; Pain is decreased cp4 02:26 Drug: NS 0.9% IV 1000 ml IV at 1 bolus Per protocol; 1000 mL bolus Route: IV; Rate: 1 cp4 bolus; Site: right forearm; 04:39 Follow up: Response: No adverse reaction; IV Status: Completed infusion cp4 02:26 Drug: Pantoprazole IV 8 mg/hr IV at 25 ml/hr continuous; (Standard dilution is 80 mg in cp4 250 mL NS) Route: IV; Rate: 25 ml/hr; Site: right forearm; 06:57 Follow up: IV Status: Completed infusion cp4 Disposition Summary: 12/04/23 01:59 Transfer Ordered Notes: Transfer Location: [facility] ec2 Reason: Higher level of care ec2 Condition: Stable ec2 Problem: an acute exacerbation ec2 Symptoms: have improved ec2 Accepting Physician: transferring jes(12/04/23 07:00) cp4 Diagnosis - GI Bleed/ Gastrointestinal hemorrhage, unspecified ec2 Forms: - Medication Reconciliation Form ec2 - SBAR form ec2 Signatures: Dispatcher [employer] Samson Sifuentes MD MD ec2 Lois Turpin cp4 Corrections: (The following items were deleted from the chart) 00: 00:31 CBC+H.LAB.BRZ ordered. EDMS EDMS 00: 00:31 COMPREHENSIVE METABOLIC PANEL+C.LAB.BRZ ordered. EDMS EDMS 00: 00:31 LIPASE+C.LAB.BRZ ordered. EDMS EDMS 00: 00:31 PROTIME (+INR)+COAG.LAB.BRZ ordered. EDMS EDMS 00: 00:31 PTT, ACTIVATED+COAG.LAB.BRZ ordered. EDMS EDMS 00: 00:31 TYPE AND SCREEN+BB.LAB.BRZ ordered. EDMS EDMS 07:00 00:41 Test, Urine+UC.LAB.BRZ ordered. EDMS EDMS 07:00 01:59 transferring doc ec2 cp4
--- NOTE | 2023-12-04 02:00 | ER ---
Nurse's Notes [facility] Name: Shira Byers Age: 43 yrs Sex: Female : 1980 Arrival Date: 12/04/2023 Time: 00:14 Bed 19 Private MD: Diagnosis: GI Bleed/ Gastrointestinal hemorrhage, unspecified Presentation: 12/03 00:17 Chief complaint: EMS states: abdominal pain and dark stools that has been ongoing for 3 cp4 weeks. Patient is scheduled for a colonoscopy on the . Coronavirus screen: Client denies travel out of the [place] in the last 14 days. At this time, the client does not indicate any symptoms associated with coronavirus-19. Ebola Screen: Patient negative for fever greater than or equal to 101.5 degrees Fahrenheit, and additional compatible Ebola Virus Disease symptoms Patient denies exposure to infectious person. Patient denies travel to an Ebola-affected area in the 21 days before illness onset. No symptoms or risks identified at this time. Initial Sepsis Screen: Does the patient meet any 2 criteria? No. Patient's initial sepsis screen is negative. Does the patient have a suspected source of infection? No. Patient's initial sepsis screen is negative. Risk Assessment: Do you want to hurt yourself or someone else? Patient reports no desire to harm self or others. Onset of symptoms was October 2023. 00:17 Method Of Arrival: EMS: [facility] 00:17 Acuity: ADILSON 3 cp4 Triage Assessment: 00:19 General: Appears in no apparent distress. comfortable, Behavior is calm, cooperative, cp4 appropriate for age. Pain: Complains of pain in abdomen Pain currently is 10 out of 10 on a pain scale. EENT: No signs and/or symptoms were reported regarding the EENT system. Neuro: Level of Consciousness is awake, alert, obeys commands, Oriented to person, place, time, situation. Cardiovascular: Patient's skin is warm and dry. Respiratory: Airway is patent Respiratory effort is even, unlabored. GI: Abdomen is flat, non-distended, Bowel sounds present X 4 quads. Abd is soft and non tender X 4 quads. : No signs and/or symptoms were reported regarding the genitourinary system. Derm: No signs and/or symptoms reported regarding the dermatologic system. Musculoskeletal: No signs and/or symptoms reported regarding the musculoskeletal system. HEAD MECHANIC: 00:19 Not cp4 Historical: - Allergies: 00:19 NKDA; cp4 - PMHx: 00:19 Bipolar disorder; Depression; Hypertensive disorder; Schizophrenia; cp4 - PSHx: 00:19 tubal ligation; cp4 - Immunization history:: Adult Immunizations up to date. - Infectious Disease History:: Denies. - Social history:: Smoking status: Patient denies any tobacco usage or history of. Screenin:21 [facility] ED Fall Risk Assessment (Adult) History of falling in the last 3 months, cp4 including since admission No falls in past 3 months (0 pts) Confusion or Disorientation No (0 pts) Intoxicated or Sedated No (0 pts) Impaired Gait No (0 pts) Mobility Assist Device Used No (0 pt) Altered Elimination No (0 pt) Score/Fall Risk Level 0 - 2 = Low Risk Oriented to surroundings, Maintained a safe environment, Assessed \T\ reinforced patient's understanding of fall precautions, Hourly rounding (assess needs \T\ fall precautionary measures) done. Abuse screen: Denies threats or abuse. Nutritional screening: No deficits noted. Tuberculosis screening: No symptoms or risk factors identified. Assessment: 00:21 Reassessment: No changes from previously documented assessment. cp4 01:00 Reassessment: Patient appears in no apparent distress at this time. Patient and/or al5 family updated on plan of care and expected duration. Pain level reassessed. Patient is alert, oriented x 3, equal unlabored respirations, skin warm/dry/pink. 02:00 Reassessment: Patient appears in no apparent distress at this time. Patient and/or al5 family updated on plan of care and expected duration. Pain level reassessed. Patient is alert, oriented x 3, equal unlabored respirations, skin warm/dry/pink. 03:00 Reassessment: Patient appears in no apparent distress at this time. Patient and/or al5 family updated on plan of care and expected duration. Pain level reassessed. Patient is alert, oriented x 3, equal unlabored respirations, skin warm/dry/pink. 04:00 Reassessment: Patient appears in no apparent distress at this time. Patient and/or al5 family updated on plan of care and expected duration. Pain level reassessed. Patient is alert, oriented x 3, equal unlabored respirations, skin warm/dry/pink. 05:00 Reassessment: Patient appears in no apparent distress at this time. Patient and/or al5 family updated on plan of care and expected duration. Pain level reassessed. Patient is alert, oriented x 3, equal unlabored respirations, skin warm/dry/pink. 06:00 Reassessment: Patient appears in no apparent distress at this time. Patient and/or al5 family updated on plan of care and expected duration. Pain level reassessed. Patient is alert, oriented x 3, equal unlabored respirations, skin warm/dry/pink. Vital Signs: 00:17 BP 158 / 102; Pulse 102; Resp 18; Temp 98.6; Pulse Ox 100% ; Pain 10/10; cp4 01:00 BP 84 / 53; Pulse 127; Resp 20; Pulse Ox 97% ; cp4 02:00 BP 108 / 72; Pulse 118; Resp 20; Pulse Ox 97% ; cp4 02:43 BP 110 / 78; ec2 03:00 BP 103 / 78; Pulse 102; Resp 20; Pulse Ox 100% ; cp4 04:00 BP 117 / 79; Pulse 108; Resp 20; Pulse Ox 100% ; cp4 05:00 BP 101 / 79; Pulse 107; Resp 18; Pulse Ox 99% ; cp4 06:00 BP 112 / 78; Pulse 102; Resp 18; Pulse Ox 98% ; cp4 00:17 Pain Scale: Adult 4 ED Course: 00:16 Patient arrived in ED. [id number] 00:17 Lois Turpin is Primary Nurse. cp4 00:19 Triage completed. cp4 00:19 Arm band placed on right wrist. Patient placed in an exam room, on a stretcher. cp4 00:21 Bed in low position. Call light in reach. Side rails up X 1. cp4 00:21 No provider procedures requiring assistance completed. cp4 00:29 Samson Garcia MD is Attending Physician. ec2 00:56 Inserted saline lock: 20 gauge in left antecubital area, using aseptic technique. Blood af3 collected. Flushed with 10 mL NS. 00:56 CBC with Diff Sent. af3 00:56 CMP Sent. af3 00:56 Lipase Sent. af3 00:56 PT-INR Sent. af3 00:56 Ptt, Activated Sent. af3 00:56 Type And Screen Sent. af3 01:31 CT Abd/Pelvis - Without Contrast In Process Unspecified. EDMS 02:18 Inserted saline lock: 22 gauge in right forearm, using aseptic technique. Flushed with ty 10 mL NS. 04:47 Assisted to bathroom. ty 06:59 Provided Education on: gi bleed. cp4 06:59 Patient transferred, IV remains in place. cp4 Administered Medications: 00:57 Drug: NS 0.9% IV 1000 ml IV at 1 bolus Per protocol; 1000 mL bolus Route: IV; Rate: 1 cp4 bolus; Site: left antecubital; 02:22 Follow up: Response: No adverse reaction; IV Status: Infusion continued cp4 00:57 Drug: Pantoprazole IVP 80 mg IVP once Route: IVP; Site: left antecubital; cp4 01:20 Follow up: Response: No adverse reaction cp4 00:57 Drug: Droperidol IVP 1.25 mg IVP once Route: IVP; Site: left antecubital; cp4 01:20 Follow up: Response: No adverse reaction cp4 00:57 Drug: diphenhydrAMINE IVP 50 mg IVP once Route: IVP; Site: left antecubital; cp4 01:20 Follow up: Response: No adverse reaction cp4 01:46 Drug: Potassium Chloride IV 20 mEq IV at calculated rate once; administer over 1-2 cp4 hours Route: IV; Rate: calculated rate; Site: left antecubital; 04:39 Follow up: Response: No adverse reaction; IV Status: Completed infusion cp4 01:46 Drug: morphine IVP or IV 4 mg IVP once over 4 mins Route: IVP; Infused Over: 4 mins; cp4 Site: left antecubital; 02:22 Follow up: Response: No adverse reaction; Pain is decreased cp4 02:26 Drug: NS 0.9% IV 1000 ml IV at 1 bolus Per protocol; 1000 mL bolus Route: IV; Rate: 1 cp4 bolus; Site: right forearm; 04:39 Follow up: Response: No adverse reaction; IV Status: Completed infusion cp4 02:26 Drug: Pantoprazole IV 8 mg/hr IV at 25 ml/hr continuous; (Standard dilution is 80 mg in cp4 250 mL NS) Route: IV; Rate: 25 ml/hr; Site: right forearm; 06:57 Follow up: IV Status: Completed infusion cp4 Medication: 00:21 VIS not applicable for this client. cp4 Outcome: :59 ER care complete, transfer ordered by . ec2 :59 Transferred by ground EMS to [facility], Transfer form completed. cp4 X-rays sent w/ patient. :59 Condition: stable 06:59 Instructed on the need for transfer, 07:00 Patient left the ED. cp4 Signatures: Dispatcher [employer] Kay Baileyj6 Samson Garcia MD MD ec2 Lois Turpin cp4 Yo Robles Amanda, RN RN al5 Zehra Balbuena3
[2023-12-04] MEDS ORDERED: NA CHLORIDE 0.9% 250 ML ONE (02:01)
--- NOTE | 2023-12-04 02:59 | RAD REPORT ---
EXAM: CT Abdomen and Pelvis Without Intravenous Contrast CLINICAL HISTORY: Abd pain. TECHNIQUE: Axial computed tomography images of the abdomen and pelvis without intravenous contrast. Sagittal a nd coronal reformatted images were created and reviewed. This CT exam was performed using one or more of the following dose reduction techniques: automated exposure control, adjustment of the mA a nd/or kV according to patient size, and/or use of iterative reconstruction technique. COMPARISON: No relevant prior studies available. FINDINGS: Lung bases: Unremarkable. No mass. No consolidation. ABDOMEN: Liver: Unremarkable. Gallbladder and bile ducts: Unremarkable. No calcified stones. No ductal dilation. Pancreas: Unremarkable. No ductal dilation. Spleen: Unremarkable. No splenomegaly. Adrenals: Unremarkable. No mass. Kidneys and ureters: No calculi. No hydronephrosis. 2.5 cm left renal cyst. No follow-up imaging is recommended. JACR 2017; [id number], Management of the Incidental Renal Mass on CT, [employer] 2020; [id number], Bosniak Classification of Cystic Renal Masses, Version 2019. Stomach and bowel: The duodenum appears somewhat thickened particularly proximally. Moderate stool. No bowel obstruction. PELVIS: Appendix: Normal caliber appendix. No findings to suggest acute appendicitis. Bladder: The urinary bladder is distended. No stones. Reproductive: Unremarkable as visualized. ABDOMEN and PELVIS: Intraperitoneal space: Trace free fluid in the cul-de-sac. No free air. Bones/joints: Mild multilevel spondylosis. No acute fracture. Mild to moderate degenerative penny es at the hip joints bilaterally. No dislocation. Soft tissues: Unremarkable. Vasculature: Unremarkable. No abdominal aortic aneurysm. Lymph nodes: Unremarkable. No enlarged lymph nodes. IMPRESSION: 1. The duodenum appears somewhat thickened particularly proximally and may reflect nonspecific duod enitis. 2. Other findings as above. Electronically signed by: Norma Velasquez MD 12/04/2023 01:50 AM CDT Due to temporary technical issues with the PACS/NATIONSPLAY reporting system, reports are being yonatan d by the in-house radiologist without review as a courtesy to ensure prompt reporting the interpreting radiologist is fully responsible for the content of the report. Transcribed Date/Time: 12/04/2023 2:59 AM
[2023-12-04 07:19] VITALS: TEMP 98.6
[2023-12-04 07:30] VITALS: BP 112/78; O2SAT 98
== END 2023-12-04 07:00 | disposition short-term general hospital (02) ==
LOC: ER 00:14
DX: K92.2 Gastrointestinal hemorrhage, unspecified (principal); R11.0 Nausea
CPT/HCPCS: 85025; 36415; 86900; 86850; 85610; 86901; 85730; 83690; 80053; 74176; 99285; J3480; J1200; J2470 ×2; J1790; J7050; J7030 ×2

== ENCOUNTER 2024-11-24 19:39 | Emergency (ER) | payer OTHER ==
[2024-11-24] MEDS ORDERED: LORazepam 2 MG/ML VIAL ONE (20:16)
[2024-11-24] MEDS ORDERED: ONDANSETRON 4 MG/2 ML VIAL ONE (20:18)
[2024-11-24] MEDS ORDERED: PANTOPRAZOLE 40 MG INJ ONE (20:18)
[2024-11-24] MEDS ORDERED: KETOROLAC 30 MG/ML INJ ONE (20:18)
[2024-11-24] MEDS ORDERED: FAMOTIDINE 20 MG/2 ML VIAL IV ONE (20:18)
[2024-11-24] MEDS ORDERED: NA CHLORIDE 0.9% 1,000 ML ONE (20:19)
[2024-11-24 20:34] LABS: Absolute Lymphocytes (CBC) 1.9 K/uL (0.7-4.9); Hematocrit 43.5 % (36.0-45.0); Hemoglobin 14.8 g/dL (12.0-15.0); MCH 34.9 pg (27.0-35.0); MCHC 34.1 g/dL (32.0-36.0); MCV 102.1 fL (80-100); MPV 7.8 fL (7.6-11.3); Nucleated RBC Absolute Count 0.0 (0-0); Nucleated Red Blood Cells % 0.0 % (0-0); RBC Red Blood Cell Count 4.26 M/uL (3.86-4.86); White Blood Count 11.30 thou/uL (4.3-10.9)
[2024-11-24 20:40] LABS: ALT/SGPT 30.0 U/L (13-56); AST/SGOT 18.0 U/L (15-37); Albumin 4.1 g/dL (3.4-5.0); Albumin/Globulin Ratio 1.3 (1.1-1.8); Alkaline Phosphatase 90.0 U/L (45-117); Anion Gap 7.3 mEq/L (5.0-15.0); BUN Blood Urea Nitrogen 11.0 mg/dL (7-18); Globulin 3.2 g/dL (2.3-3.5); Glucose Level 106.0 mg/dL (74-106); Lipase 29.0 U/L (13-75); Potassium 3.3 mEq/L (3.5-5.1)
--- NOTE | 2024-11-24 22:09 | EDPHYS ---
Physician Documentation [facility] Name: Shira Byers Age: 44 yrs Sex: Female : 1980 Arrival Date: 11/24/2024 Time: 19:39 Bed 13 Private MD: ED Physician Dom Vargas HPI: 11/24 19:49 This 44 yrs old Other Race Female presents to ER via Unassigned with complaints of sp4 Abdominal Pain. 11/25 02:13 44-year-old female presents with acute abdominal cramps nausea vomiting and feeling sp4 unwell overall. The past 2 days patient could not take a psychiatric medication which is Haldol 2 mg p.o. daily. Historical: - Allergies: 11/24 19:53 NKDA; me1 - PMHx: 19:53 Bipolar disorder; Depression; Hypertensive disorder; Schizophrenia; me1 - PSHx: 19:53 tubal ligation; me1 - Immunization history:: Adult Immunizations up to date. - Infectious Disease History:: Denies. - Social history:: Smoking status: Patient reports the use of cigarette tobacco products, smokes one-half pack cigarettes per day, Reported history of juuling and/or vaping. - Family history:: not pertinent. ROS: 11/25 02:14 Constitutional: Negative for fever, chills, and weight loss, positive for abdominal sp4 cramps, positive for nausea vomiting All other systems are negative, Exam: 02:14 Constitutional: This is a well developed, well nourished patient who is awake, alert, sp4 anxious and tremulous appearing female Head/Face: Normocephalic, atraumatic. Eyes: Pupils equal round and reactive to light, extra-ocular motions intact. Lids and lashes normal. Conjunctiva and sclera are not injected. Cornea within normal limits. Periorbital areas with no swelling, redness, or edema. ENT: Nares patent. No nasal discharge, no septal abnormalities noted. Tympanic membranes are normal and external auditory canals are clear. Oropharynx with no redness, swelling, or masses, exudates, or evidence of obstruction, uvula midline. Mucous membranes moist. Neck: Trachea midline, no thyromegaly or masses palpated, and no cervical lymphadenopathy. Supple, full range of motion without nuchal rigidity, or vertebral point tenderness. Chest/axilla: Normal chest wall appearance and motion. Nontender with no deformity. No lesions are appreciated. Cardiovascular: Regular rate and rhythm with a normal S1 and S2. No gallops, murmurs, or rubs. No pulse deficits. Respiratory: Lungs have equal breath sounds bilaterally, clear to auscultation and percussion. No rales, rhonchi or wheezes noted. No increased work of breathing, no retractions or nasal flaring. Abdomen/GI: Soft, with normal bowel sounds. No distension or tympany. No guarding or rebound. No evidence of tenderness throughout. Back: No spinal tenderness. No costovertebral tenderness. Skin: Warm, dry with normal turgor. Normal color with no rashes, no lesions, and no evidence of cellulitis. MS/ Extremity: Pulses equal, no cyanosis. Neurovascular intact. Full, normal range of motion. Neuro: Awake and alert, GCS 15, oriented to person, place, time, and situation. Cranial nerves II-XII grossly intact. Motor strength 5/5 in all extremities. Sensory grossly intact. Psych: Awake, alert, with orientation to person, place and time. Behavior, mood, and affect are within normal limits Vital Signs: 11/24 19:51 BP 139 / 105; Pulse 125; Resp 20; Temp 97.9; Pulse Ox 99% ; Weight 52.62 kg; Height 5 me1 ft. 2 in. ; Pain 10/10; 20:45 BP 142 / 99; Pulse 92; Resp 18; Pulse Ox 100% ; kt5 22:01 BP 141 / 102; Pulse 94; Resp 18; Temp 98.6; Pulse Ox 100% ; Pain 0/10; kt5 19:51 Body Mass Index 21.22 (52.62 kg, 157.48 cm) me1 19:51 Pain Scale: Adult me1 22:01 Pain Scale: Adult kt5 Sangeeta Coma Score: 11/25 02:14 Eye Response: spontaneous(4). Motor Response: obeys commands(6). Verbal Response: sp4 oriented(5). Total: 15. MDM: 11/24 21:05 Medical Screening Exam initiated sp4 11/25 02:16 Differential diagnosis: gastritis, Hepatitis, Irritable bowel syndrome, pancreatitis. sp4 Data reviewed: vital signs, nurses notes. 02:16 Consideration of Admission/Observation Escalation of care including sp4 admission/observation considered. ED course: Patient states she is feeling much better after medication and IV hydration. Stable for discharge home. Working diagnosis is acute viral gastroenteritis. Advise clear liquid diet for the next 24 hours.. 11/24 19:56 Order name: CBC with Diff; Complete Time: 21:44 sp4 11/24 19:56 Order name: CMP; Complete Time: 21:44 sp4 11/24 19:56 Order name: Lipase; Complete Time: 21:44 sp4 11/24 19:56 Order name: IV Saline Lock; Complete Time: 20:16 sp4 11/24 19:56 Order name: Labs collected and sent; Complete Time: 20:16 sp4 Administered Medications: 11/24 20:31 Drug: TORadol - Ketorolac IVP 15 mg IVP once Route: IVP; Site: left antecubital; kt5 20:56 Follow up: Response: No adverse reaction; Pain is decreased kt5 20:31 Drug: Ondansetron IVP 8 mg IVP once; over 2 minutes Route: IVP; Site: left antecubital; kt5 20:55 Follow up: Response: No adverse reaction; Nausea is decreased kt5 20:31 Drug: NS 0.9% IV 1000 ml IV at 1 bolus Per protocol; to be given as a bolus over 60 kt5 minutes Route: IV; Rate: 1 bolus; Site: left antecubital; 22:49 Follow up: IV Status: Completed infusion; IV Intake: 1000ml kt5 20:31 Drug: Ativan IVP 1 mg IVP once Route: IVP; Site: left antecubital; kt5 20:56 Follow up: Response: No adverse reaction; Anxiety decreased kt5 22:47 Follow up: Response: No adverse reaction; Anxiety decreased kt5 20:32 Drug: Famotidine IVP 20 mg IVP once; dilute with 10 mL 0.9% NaCl; give over 2 minutes kt5 Route: IVP; Site: left antecubital; 20:55 Follow up: Response: No adverse reaction; Nausea is decreased kt5 22:48 Follow up: Response: No adverse reaction kt5 20:32 Drug: Pantoprazole IVP 40 mg IVP once Route: IVP; Site: left antecubital; kt5 20:56 Follow up: Response: No adverse reaction; Nausea is decreased kt5 22:47 Follow up: Response: No adverse reaction; Nausea is decreased kt5 20:55 Drug: Haloperidol PO 2.5 mg PO once Route: PO; kt5 22:47 Follow up: Response: No adverse reaction; Anxiety decreased kt5 22:46 Not Given (nurse did not give): [id number] mg PO once kt5 Disposition: 11/25 02:17 Chart complete. sp4 Disposition Summary: 11/24/24 22:09 Discharge Ordered Notes: Location: Home sp4 Problem: new sp4 Symptoms: have improved sp4 Condition: Stable sp4 Diagnosis - Acute viral gastroenteritis sp4 - Acute anxiety attack sp4 Followup: sp4 - With: Private Physician - When: 7 - 10 days - Reason: Recheck today's complaints Discharge Instructions: - Discharge Summary Sheet sp4 - Viral Gastroenteritis, Adult, [id number] sp4 Forms: - Patient Portal Instructions sp4 Prescriptions: - Lomotil 2.5-0.025 mg Oral tablet - take 1 tablet ORAL route every 6 hours As needed; 30 tablet; Refills: 0, sp4 Product Selection Permitted - dicyclomine 20 mg Oral tablet - take 1 tablet ORAL route 4 times per day PRN abdominal cramps; 30 tablet; sp4 Refills: 0, Product Selection Permitted - ondansetron 8 mg Oral Tablet,disintegrating - take 1 tablet ORAL route every 8 hours PRN nausea; 30 tablet; Refills: 0, sp4 Product Selection Permitted Signatures: Dispatcher [employer] Dom Morrissey MD MD sp4 Karla Jorge RN RN me1 Abiola Guevara RN RN kt5 Corrections: (The following items were deleted from the chart) 11/24 19:57 19:57 CBC+H.LAB.BRZ ordered. EDMS EDMS 19:57 19:57 COMPREHENSIVE METABOLIC PANEL+C.LAB.BRZ ordered. EDMS EDMS 19:57 19:57 LIPASE+C.LAB.BRZ ordered. EDMS EDMS
--- NOTE | 2024-11-24 22:09 | ER ---
Nurse's Notes [facility] Name: Shira Byers Age: 44 yrs Sex: Female : 1980 Arrival Date: 11/24/2024 Time: 19:39 Bed 13 Private MD: Diagnosis: Acute viral gastroenteritis;Acute anxiety attack Presentation: 11/24 19:51 Chief complaint: Patient states: c/o epigastric pain with n/v since last night. pain is me1 10/10 "cramping". Unable to tolerate food or fluids today. Coronavirus screen: Vaccine status: Patient reports receiving the 2nd dose of the covid vaccine. Ebola Screen: No symptoms or risks identified at this time. Initial Sepsis Screen: Does the patient meet any 2 criteria? HR > 90 bpm. Does the patient have a suspected source of infection? No. Patient's initial sepsis screen is negative. Risk Assessment: Do you want to hurt yourself or someone else? Patient reports no desire to harm self or others. Onset of symptoms was November 24, 2024. 19:51 Method Of Arrival: [place] [facility] [place] Acuity: ADLISON 3 me1 Triage Assessment: 19:53 Neuro: Level of Consciousness is awake, alert, obeys commands, Oriented to person, me1 place, time, situation, Appropriate for age. Cardiovascular: Patient's skin is warm and dry. Respiratory: Airway is patent Respiratory effort is even, unlabored, Respiratory pattern is regular, symmetrical. GI: Reports upper abdominal pain, nausea, vomiting, since yesterday. Historical: - Allergies: 19:53 NKDA; me1 - PMHx: 19:53 Bipolar disorder; Depression; Hypertensive disorder; Schizophrenia; me1 - PSHx: 19:53 tubal ligation; me1 - Immunization history:: Adult Immunizations up to date. - Infectious Disease History:: Denies. - Social history:: Smoking status: Patient reports the use of cigarette tobacco products, smokes one-half pack cigarettes per day, Reported history of juuling and/or vaping. - Family history:: not pertinent. Screenin:01 [facility] ED Fall Risk Assessment (Adult) History of falling in the last 3 months, kt5 including since admission No falls in past 3 months (0 pts) Confusion or Disorientation No (0 pts) Intoxicated or Sedated No (0 pts) Impaired Gait No (0 pts) Mobility Assist Device Used No (0 pt) Altered Elimination No (0 pt) Score/Fall Risk Level 0 - 2 = Low Risk Oriented to surroundings, Maintained a safe environment. Abuse screen: Denies threats or abuse. Nutritional screening: No deficits noted. Tuberculosis screening: No symptoms or risk factors identified. Assessment: 19:58 General: Appears in no apparent distress. uncomfortable, Behavior is cooperative, kt5 anxious. Pain: Complains of pain in epigastric area, right upper quadrant and left upper quadrant Pain does not radiate. Pain currently is 10 out of 10 on a pain scale. Quality of pain is described as sharp. Neuro: No deficits noted. Holland Agitation-Sedation Scale (RASS): +1 Restless Level of Consciousness is awake, alert, obeys commands, Oriented to person, place, time, situation. Cardiovascular: No deficits noted. Reports None Denies chest pain, Heart tones S1 S2 present Capillary refill < 3 seconds is brisk Clubbing of nail beds is absent JVD is absent Pulses are all present. Edema is absent. Respiratory: No deficits noted. Airway is patent Trachea midline Respiratory effort is even, unlabored, Respiratory pattern is regular, symmetrical. GI: No deficits noted. Abdomen is flat, non-distended, Bowel sounds present X 4 quads. Abd is soft X 4 quads Abdomen is tender to palpation in epigastric area, right upper quadrant and left upper quadrant Reports diarrhea, nausea, tolerance of fluids, tolerance of food, vomiting. : No deficits noted. No signs and/or symptoms were reported regarding the genitourinary system. EENT: No deficits noted. No signs and/or symptoms were reported regarding the EENT system. Derm: No deficits noted. No signs and/or symptoms reported regarding the dermatologic system. Skin is intact, Skin is dry, Skin is pink, warm \\T\\ dry. Musculoskeletal: No deficits noted. No signs and/or symptoms reported regarding the musculoskeletal system. 20:45 Reassessment: Patient appears in no apparent distress at this time. Patient and/or kt5 family updated on plan of care and expected duration. Pain level reassessed. Patient is alert, oriented x 3, equal unlabored respirations, skin warm/dry/pink. Patient states feeling better. Patient states symptoms have improved. 21:07 General: pt up ambulating to rr w/o complications. kt5 21:20 Reassessment: Patient appears in no apparent distress at this time. Patient and/or kt5 family updated on plan of care and expected duration. Pain level reassessed. Patient is alert, oriented x 3, equal unlabored respirations, skin warm/dry/pink. Patient denies pain at this time. Patient states feeling better. Patient states symptoms have improved. 22:01 Reassessment: Patient appears in no apparent distress at this time. Patient and/or kt5 family updated on plan of care and expected duration. Pain level reassessed. Patient is alert, oriented x 3, equal unlabored respirations, skin warm/dry/pink. Patient denies pain at this time. Patient states feeling better. Patient states symptoms have improved. Vital Signs: 19:51 BP 139 / 105; Pulse 125; Resp 20; Temp 97.9; Pulse Ox 99% ; Weight 52.62 kg; Height 5 me1 ft. 2 in. ; Pain 10/10; 20:45 BP 142 / 99; Pulse 92; Resp 18; Pulse Ox 100% ; kt5 22:01 BP 141 / 102; Pulse 94; Resp 18; Temp 98.6; Pulse Ox 100% ; Pain 0/10; kt5 19:51 Body Mass Index 21.22 (52.62 kg, 157.48 cm) me1 19:51 Pain Scale: Adult me1 22:01 Pain Scale: Adult kt5 Sangeeta Coma Score: 11/25 02:14 Eye Response: spontaneous(4). Motor Response: obeys commands(6). Verbal Response: sp4 oriented(5). Total: 15. ED Course: 11/24 19:44 Patient arrived in ED. al6 19:48 Dom Vargas MD is Attending Physician. sp4 19:53 Triage completed. me1 19:53 Arm band placed on Patient placed in an exam room. me1 20:01 Patient has correct armband on for positive identification. Bed in low position. Call kt light in reach. Side rails up X 1. Client placed on continuous cardiac and pulse oximetry monitoring. NIBP monitoring applied. Door closed. Noise minimized. Warm blanket given. Pillow given. Family accompanied patient. 20:01 No provider procedures requiring assistance completed. kt5 20:20 Abiola Guevara, LEONARDO is Primary Nurse. kt5 22:01 Provided Education on: follow up and meds. kt5 22:01 IV discontinued, intact, bleeding controlled, No redness/swelling at site. Pressure kt5 dressing applied. Administered Medications: 20:31 Drug: TORadol - Ketorolac IVP 15 mg IVP once Route: IVP; Site: left antecubital; kt5 20:56 Follow up: Response: No adverse reaction; Pain is decreased kt5 20:31 Drug: Ondansetron IVP 8 mg IVP once; over 2 minutes Route: IVP; Site: left antecubital; kt5 20:55 Follow up: Response: No adverse reaction; Nausea is decreased kt5 20:31 Drug: NS 0.9% IV 1000 ml IV at 1 bolus Per protocol; to be given as a bolus over 60 kt5 minutes Route: IV; Rate: 1 bolus; Site: left antecubital; 22:49 Follow up: IV Status: Completed infusion; IV Intake: 1000ml kt5 20:31 Drug: Ativan IVP 1 mg IVP once Route: IVP; Site: left antecubital; kt5 20:56 Follow up: Response: No adverse reaction; Anxiety decreased kt5 22:47 Follow up: Response: No adverse reaction; Anxiety decreased kt5 20:32 Drug: Famotidine IVP 20 mg IVP once; dilute with 10 mL 0.9% NaCl; give over 2 minutes kt5 Route: IVP; Site: left antecubital; 20:55 Follow up: Response: No adverse reaction; Nausea is decreased kt5 22:48 Follow up: Response: No adverse reaction kt5 20:32 Drug: Pantoprazole IVP 40 mg IVP once Route: IVP; Site: left antecubital; kt5 20:56 Follow up: Response: No adverse reaction; Nausea is decreased kt5 22:47 Follow up: Response: No adverse reaction; Nausea is decreased kt5 20:55 Drug: Haloperidol PO 2.5 mg PO once Route: PO; kt5 22:47 Follow up: Response: No adverse reaction; Anxiety decreased kt5 22:46 Not Given (nurse did not give): [id number] mg PO once kt5 Medication: 20:01 VIS not applicable for this client. kt5 Intake: 22:49 IV: 1000ml; Total: 1000ml. kt5 Outcome: 22:01 Discharged to home ambulatory, with family, kt5 22:01 Condition: improved 22:01 Discharge instructions given to patient, family, Instructed on discharge instructions, follow up and referral plans. Demonstrated understanding of instructions, follow-up care, medications, Prescriptions given X 3, 22:09 Discharge ordered by . sp4 22:49 Patient left the ED. kt5 Signatures: Dom Vargas MD MD sp4 Karla Jorge, RN RN me1 Clarissa Kruger al6 Abiola Guevara, LEONARDO RN kt5 Corrections: (The following items were deleted from the chart) 22:38 22:01 BP 141 / 102; Pulse 94bpm; Resp 18bpm; Pulse Ox 100%; kt5 kt5
[2024-11-24 23:35] VITALS: O2SAT 100
[2024-11-24 23:36] VITALS: BP 141/102; TEMP 98.6
== END 2024-11-24 22:49 | disposition home or self-care (01) ==
LOC: ER 19:39
DX: A08.4 Viral intestinal infection, unspecified (principal); F41.9 Anxiety disorder, unspecified
CPT/HCPCS: 96361; 85025; 36415; 83690; 80053; 96375; 96374; 99284; J2470; J2405; J7030

== ENCOUNTER 2024-11-27 08:36 | Emergency (ER) | payer OTHER ==
[2024-11-27] MEDS ORDERED: ONDANSETRON 4 MG/2 ML VIAL ONE (09:03)
[2024-11-27] MEDS ORDERED: LORazepam 2 MG/ML VIAL ONE (09:03)
[2024-11-27] MEDS ORDERED: NA CHLORIDE 0.9% 1,000 ML ONE (09:04)
[2024-11-27] MEDS ORDERED: KETOROLAC 30 MG/ML INJ ONE (09:04)
[2024-11-27 09:16] LABS: Absolute Lymphocytes (CBC) 1.9 K/uL (0.7-4.9); Hematocrit 41.8 % (36.0-45.0); Hemoglobin 14.5 g/dL (12.0-15.0); MCH 35.7 pg (27.0-35.0); MCHC 34.8 g/dL (32.0-36.0); MCV 102.6 fL (80-100); MPV 7.9 fL (7.6-11.3); Nucleated RBC Absolute Count 0.0 (0-0); Nucleated Red Blood Cells % 0.0 % (0-0); RBC Red Blood Cell Count 4.07 M/uL (3.86-4.86); White Blood Count 15.40 thou/uL (4.3-10.9)
[2024-11-27 09:34] LABS: ALT/SGPT 36.0 U/L (13-56); AST/SGOT 20.0 U/L (15-37); Albumin 3.8 g/dL (3.4-5.0); Albumin/Globulin Ratio 1.2 (1.1-1.8); Alkaline Phosphatase 98.0 U/L (45-117); Anion Gap 11.0 mEq/L (5.0-15.0); BUN Blood Urea Nitrogen 8.0 mg/dL (7-18); Globulin 3.2 g/dL (2.3-3.5); Glucose Level 123.0 mg/dL (74-106); Lipase 28.0 U/L (13-75); Potassium 3.0 mEq/L (3.5-5.1)
[2024-11-27 09:40] LABS: Urine Culture Reflex Order REFLEXED; Urine Microscopic Reflex YN ORDER UMIC
--- NOTE | 2024-11-27 09:59 | RAD REPORT ---
EXAMINATION: Abdomen Pelvis W Contrast CLINICAL INDICATION: Female, 44 years old.ABD PAIN TECHNIQUE: CT abdomen and pelvis was performed, after the administration of IV contrast[facility] Axial, sagittal and coronal reconstructions were obtained. One or more of the following dose reduction techniques were used: Automated exposure control, adjustment of the mA and/o r kV according to patient size, and/or iterative reconstruction. Unless otherwise specified, incidental findings do not require dedicated imaging follow-up. [id number]. COMPARISON: 09/20/2024 FINDINGS: LOWER CHEST: 2 mm nodule right lower lobe of doubtful significance. No follow-up required.No signific ant pericardial effusion. Moderate circumferential thickening of the distal esophagus which could reflect esophagitis. Endoscopy could better evaluate. UPPER GI: No significant abnormality. LIVER: No significant focal abnormality. GALLBLADDER/BILE DUCTS: No biliary ductal dilatation.? PANCREAS: No mass, ductal dilation, or jose manuel-pancreatic fluid. SPLEEN: Unremarkable. ADRENALS: No adrenal masses. KIDNEYS AND URETERS: No hydronephrosis.Low density and/or too small to characterize renal lesions whi ch are statistically benign. ABDOMINAL AORTA AND OTHER VESSELS: Normal caliber aorta and IVC. PERITONEUM: No abnormal free fluid. No free air. LYMPH NODES: No pathologic lymphadenopathy. ABDOMINAL WALL: Unremarkable SMALL BOWEL/COLON: Small bowel has normal course and caliber. No colonic wall thickening or pericolon ic inflammatory changes.Normal appendix. URINARY BLADDER: Underdistended but grossly unremarkable. REPRODUCTIVE ORGANS: No pathologic process. MUSCULOSKELETAL: No acute or suspicious osseous abnormality. ADDITIONAL FINDINGS: None. IMPRESSION: No acute findings within the abdomen or pelvis. Moderately thickened distal esophagus likely reflecti ng esophagitis. Normal appendix. No urinary tract calculi.
--- NOTE | 2024-11-27 10:10 | ER ---
Nurse's Notes [facility] Name: Shira By[facility] Age: 44 yrs Sex: Female : 1980 Arrival Date: 11/27/2024 Time: 08:36 Bed 15 Private MD: Diagnosis: Other specified noninfective gastroenteritis and colitis;Dehydration Presentation: 11/27 08:47 Coronavirus screen: At this time, the client does not indicate any symptoms associated iw with coronavirus-19. Ebola Screen: No symptoms or risks identified at this time. Initial Sepsis Screen: Does the patient meet any 2 criteria? No. Patient's initial sepsis screen is negative. Does the patient have a suspected source of infection? No. Patient's initial sepsis screen is negative. Risk Assessment: Do you want to hurt yourself or someone else? Patient reports no desire to harm self or others. 08:47 Acuity: ADILSON 3 iw 08:47 Method Of Arrival: Ambulatory iw 08:48 Chief complaint: Patient states: abd pain, vomiting all night long, was seen here iw earlier this week for similar symptoms. 09:18 Onset of symptoms was November 27, 2024. 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 - Infectious Disease History:: Denies. - Social history:: Smoking status: Patient reports the use of cigarette tobacco products, smokes one-half pack cigarettes per day. Screenin:18 [facility] ED Fall Risk Assessment (Adult) History of falling in the last 3 months, mb9 including since admission No falls in past 3 months (0 pts) Confusion or Disorientation No (0 pts) Intoxicated or Sedated No (0 pts) Impaired Gait No (0 pts) Mobility Assist Device Used No (0 pt) Altered Elimination No (0 pt) Score/Fall Risk Level 0 - 2 = Low Risk Oriented to surroundings, Maintained a safe environment, Educated pt \T\ family on fall prevention, incl call for assistance when getting out of bed. Abuse screen: Denies threats or abuse. Nutritional screening: No deficits noted. Tuberculosis screening: No symptoms or risk factors identified. Assessment: 09:17 General: Appears uncomfortable, Behavior is anxious. Pain: Complains of pain in abdomen mb9 Pain does not radiate. Pain currently is 10 out of 10 on a pain scale. Quality of pain is described as throbbing, Pain began suddenly, Is continuous. Neuro: Holland Agitation-Sedation Scale (RASS): 0 - Alert and Calm Level of Consciousness is awake, alert, obeys commands, Oriented to person, place, time, situation, Appropriate for age. Cardiovascular: Heart tones S1 S2 present Patient's skin is warm and dry. Respiratory: Airway is patent Respiratory effort is even, unlabored, Respiratory pattern is regular, symmetrical, Breath sounds are clear bilaterally. GI: Abdomen is flat, non-distended, Bowel sounds present X 4 quads. Abd is soft Abdomen is tender to palpation X 4 quads. Reports nausea, vomiting. : Urine is cloudy. EENT: No signs and/or symptoms were reported regarding the EENT system. Derm: Skin is pink, warm \T\ dry. Musculoskeletal: Range of motion: intact in all extremities. 09:25 Reassessment: Erasmo faxed to pharmacy. mb9 10:05 Reassessment: No changes from previously documented assessment. Patient and/or family mb9 updated on plan of care and expected duration. Pain level reassessed. Patient is alert, oriented x 3, equal unlabored respirations, skin warm/dry/pink. 10:19 Reassessment: D/C pending PO challenge. mb9 10:53 Reassessment: No changes from previously documented assessment. Patient and/or family mb9 updated on plan of care and expected duration. Pain level reassessed. Patient is alert, oriented x 3, equal unlabored respirations, skin warm/dry/pink. Pt passed PO challenge. Vital Signs: 08:47 BP 148 / 90; Pulse 93; Resp 16; Temp 98.4; Pulse Ox 96% on R/A; Weight 52.62 kg; Height iw 5 ft. 2 in. ; Pain 1010; 09:50 BP 131 / 82; Pulse 84; Resp 16; Pulse Ox 100% on R/A; mb9 08:47 Body Mass Index 21.22 (52.62 kg, 157.48 cm) iw 08:47 Pain Scale: Adult iw ED Course: 08:39 Patient arrived in ED. al6 08:42 Srinivasan Naranjo FNP-C is [facility]. [facility] 08:42 Chester Coronado DO is Attending Physician. dr5 08:48 Triage completed. iw 08:48 Arm band placed on. iw 08:51 Agata Elder, LEONARDO is Primary Nurse. mb9 09:05 Initial lab(s) drawn, by me, sent to lab. Urine collected: clean catch specimen, mb9 cloudy. Inserted saline lock: 20 gauge in left antecubital area, using aseptic technique. Blood collected. Flushed with 10 mL NS. 09:18 Placed in gown. Bed in low position. Call light in reach. Side rails up X 1. Provided mb9 Education on: press call light if needing anything. Client placed on continuous cardiac and pulse oximetry monitoring. NIBP monitoring applied. Door closed. Noise minimized. Warm blanket given. Pillow given. 09:19 No provider procedures requiring assistance completed. mb9 09:37 CT Abd/Pelvis - IV Contrast Only In Process Unspecified. EDMS 10:53 IV discontinued, intact, bleeding controlled, No redness/swelling at site. Pressure mb9 dressing applied. Administered Medications: 09:08 Drug: Ondansetron IVP 4 mg IVP once; over 2 minutes Route: IVP; Site: left antecubital; mb9 09:55 Follow up: Response: No adverse reaction mb9 09:10 Drug: NS 0.9% IV 1000 ml IV at 1 bolus Per protocol; to be given as a bolus over 60 mb9 minutes Route: IV; Rate: 1 bolus; Site: left antecubital; 10:10 Follow up: Response: No adverse reaction; IV Status: Completed infusion mb9 09:10 Drug: Ativan IVP 1 mg IVP once Route: IVP; Site: left antecubital; mb9 09:55 Follow up: Response: No adverse reaction mb9 09:12 Drug: TORadol - Ketorolac IVP 15 mg IVP once Route: IVP; Site: left antecubital; mb9 09:55 Follow up: Response: No adverse reaction mb9 10:18 Drug: Potassium PO Effervescent Tablet 50 mEq PO once; dissolve in 4 ounces of water or mb9 juice Route: PO; 10:53 Follow up: Response: No adverse reaction mb9 10:19 Drug: Haloperidol PO 2.5 mg PO once Route: PO; mb9 10:53 Follow up: Response: No adverse reaction mb9 10:19 Drug: Promethazine IM 25 mg IM once Route: IM; Site: right gluteus; mb9 10:54 Follow up: Response: No adverse reaction mb9 Medication: 09:19 VIS not applicable for this client. mb9 Outcome: 10:09 Discharge ordered by MD. dr5 10:38 Discharge ordered by MD. dr5 10:53 Discharged to home ambulatory, with family, mb9 10:53 Condition: stable 10:53 Discharge instructions given to patient, family, Instructed on discharge instructions, follow up and referral plans. Demonstrated understanding of instructions, follow-up care, medications, Prescriptions given X 4, 10:54 Patient left the ED. mb9 Signatures: Dispatcher [employer] EDMS Cheryl Poe RN RN iw Wilkerson, Agata Wade RN RN mb9 Srinivasan Naranjo, CRUSHER MACHINE OPERATOR-C CRUSHER MACHINE OPERATOR-Cdr5 Clarissa Kruger Corrections: (The following items were deleted from the chart) 08:49 08:47 Pulse 93bpm; Resp 16bpm; Pulse Ox 96% RA; Temp 98.4F; 52.62 kg; Height 5 ft. 2 iw in.; BMI: 21.2; Pain 12/06, Adult; iw 08:49 08:48 Chief complaint: Patient states: abd pain, vomiting iw iw
--- NOTE | 2024-11-27 10:10 | EDPHYS ---
Physician Documentation [facility] Name: Shira Byers Age: 44 yrs Sex: Female : 1980 Arrival Date: 11/27/2024 Time: 08:36 Bed 15 Private MD: ED Physician Chester Coronado HPI: 11/27 09:43 This 44 yrs old Female presents to ER via Ambulatory with complaints of dr5 Vomiting, Abdominal Pain. 09:43 The patient presents to the emergency department with nausea, vomiting. Onset: The dr5 symptoms/episode began/occurred 3 day(s) ago. Patient is a 44-year-old female with history of depression, hypertension, schizophrenia, bipolar disorder coming in with generalized abdominal pain that is been going on for the past 3 days. Patient reports that she was seen here 3 days ago and attempted to take medicines but pain medicines are helping. Patient also reports he has not followed up with primary care doctor. Patient states that she has not taken her Haldol this morning. Patient reports nausea and vomiting as well as dysuria.. MOTOR WINDER: 09:19 LMP N/A - , Not mb9 Historical: - Allergies: 08:46 NKDA; iw - PMHx: 08:46 Depression; Hypertensive disorder; Schizophrenia; Bipolar disorder; Ulcer; iw - PSHx: 08:46 tubal ligation; iw - Immunization history:: Adult Immunizations not up to date. - Infectious Disease History:: Denies. - Social history:: Smoking status: Patient reports the use of cigarette tobacco products, smokes one-half pack cigarettes per day. ROS: 09:43 Constitutional: as per hpi dr5 Exam: 09:43 Constitutional: This is a well developed, well nourished patient who is awake, alert, dr5 and in no acute distress. Head/Face: Normocephalic, atraumatic. Eyes: Pupils equal round and reactive to light, extra-ocular motions intact. Lids and lashes normal. Conjunctiva and sclera are non-icteric and not injected. Cornea within normal limits. Periorbital areas with no swelling, redness, or edema. Neck: Trachea midline, no thyromegaly or masses palpated, and no cervical lymphadenopathy. Supple, full range of motion without nuchal rigidity, or vertebral point tenderness. No Meningismus. Chest/axilla: Normal chest wall appearance and motion. Nontender with no deformity. No lesions are appreciated. Cardiovascular: Regular rate and rhythm with a normal S1 and S2. Normal PMI, no JVD. No pulse deficits. Respiratory: Lungs have equal breath sounds bilaterally, clear to auscultation. No rales, rhonchi or wheezes noted. No increased work of breathing, no retractions or nasal flaring. Back: No spinal tenderness. No costovertebral tenderness. Full range of motion. Skin: Warm, dry with normal turgor. Normal color with no rashes, no lesions, and no evidence of cellulitis. MS/ Extremity: Pulses equal, no cyanosis. Neurovascular intact. Full, normal range of motion. Neuro: Awake and alert, GCS 15, oriented to person, place, time, and situation. Cranial nerves II-XII grossly intact. Motor strength 5/5 in all extremities. Sensory grossly intact. Cerebellar exam normal. Normal gait. 09:43 Abdomen/GI: Inspection: abdomen appears normal, Bowel sounds: normal, active, Palpation: mild abdominal tenderness, in all quadrants, Vital Signs: 08:47 BP 148 / 90; Pulse 93; Resp 16; Temp 98.4; Pulse Ox 96% on R/A; Weight 52.62 kg; Height iw 5 ft. 2 in. ; Pain 10/10; 09:50 BP 131 / 82; Pulse 84; Resp 16; Pulse Ox 100% on R/A; mb9 08:47 Body Mass Index 21.22 (52.62 kg, 157.48 cm) iw 08:47 Pain Scale: Adult iw MDM: 08:42 Medical Screening Exam initiated dr5 10:47 Differential diagnosis: Nonspecific abd pain, gastritis, viral gastroenteritis, dr5 gastroenteritis. Data reviewed: vital signs, nurses notes, lab test result(s), amylase and lipase, CBC, white blood cell count, hemoglobin, hematocrit, platelets, electrolytes, sodium, potassium, chloride, serum bicarbonate, BUN, creatinine, serum glucose, urinalysis, UPT: radiologic studies, CT scan. Consideration of Admission/Observation Escalation of care including admission/observation considered. Escalation considered if patient found to have diverticulitis with perforation. I considered the following discharge prescriptions or medication management in the emergency department I discussed and recommended Over The Counter medications, Medications were administered in the Emergency Department. See MAR. Historians other than the Patient: Parent: Dad at bedside. Care significantly affected by the following chronic conditions: Hypertension, Bipolar disorder, schizophrenia, depression. Care significantly affected by the following Social Determinants of Health: Poor access to healthcare and/or lack of insurance, Poor access to transportation, Problems related to employment. Counseling: I had a detailed discussion with the patient and/or guardian regarding the historical points, exam findings, and any diagnostic results supporting the discharge/admit diagnosis, the presence of at least one elevated blood pressure reading (>120/80) during this emergency department visit, lab results, radiology results, the need for outpatient follow up, for definitive care, a family practitioner, a supervisor delivery department, to return to the emergency department if symptoms worsen or persist or if there are any questions or concerns that arise at home. Medication response: Potassium, promethazine, Haldol. Response to treatment: the patient's symptoms have markedly improved after treatment. Special discussion: I discussed with the patient/guardian in detail that at this point there is no indication for admission to the hospital. It is understood, however, that if the symptoms persist or worsen the patient needs to return immediately for re-evaluation. Based on the history and exam findings, there is no indication for further emergent testing or inpatient evaluation. I discussed with the patient/guardian the need to see the supervisor delivery department for further evaluation of the symptoms. ED course: Patient reports she still much better. Will send patient home with antibiotics for developing urinary tract infection as well as possible toxic gastroenteritis. Labs and CT results were printed and given to patient take with her to primary care doctor. All question answered. Return precautions given. 11/27 08:53 Order name: CBC with Diff; Complete Time: : dr5 11/27 08:53 Order name: CMP; Complete Time: : dr5 11/27 08:53 Order name: Lipase; Complete Time: : dr5 11/27 08:54 Order name: UA Rfx Portillo Cult if indicated; Complete Time: : dr5 11/27 08:54 Order name: Test, Urine; Complete Time: : dr5 11/27 09:44 Order name: Urine Culture EDPR 11/27 08:54 Order name: CT Abd/Pelvis - IV Contrast Only; Complete Time: :11/27 08:53 Order name: IV Saline Lock; Complete Time: : dr5 11/27 08:53 Order name: Labs collected and sent; Complete Time: 09:20 dr5 Administered Medications: 09:08 Drug: Ondansetron IVP 4 mg IVP once; over 2 minutes Route: IVP; Site: left antecubital; mb9 09:55 Follow up: Response: No adverse reaction mb9 09:10 Drug: NS 0.9% IV 1000 ml IV at 1 bolus Per protocol; to be given as a bolus over 60 mb9 minutes Route: IV; Rate: 1 bolus; Site: left antecubital; 10:10 Follow up: Response: No adverse reaction; IV Status: Completed infusion mb9 09:10 Drug: Ativan IVP 1 mg IVP once Route: IVP; Site: left antecubital; mb9 09:55 Follow up: Response: No adverse reaction mb9 09:12 Drug: TORadol - Ketorolac IVP 15 mg IVP once Route: IVP; Site: left antecubital; mb9 09:55 Follow up: Response: No adverse reaction mb9 10:18 Drug: Potassium PO Effervescent Tablet 50 mEq PO once; dissolve in 4 ounces of water or mb9 juice Route: PO; 10:53 Follow up: Response: No adverse reaction mb9 10:19 Drug: Haloperidol PO 2.5 mg PO once Route: PO; mb9 10:53 Follow up: Response: No adverse reaction mb9 10:19 Drug: Promethazine IM 25 mg IM once Route: IM; Site: right gluteus; mb9 10:54 Follow up: Response: No adverse reaction mb9 Disposition: 11:57 I was immediately available on-site in the Emergency Department for consultation in the ms3 care of the patient. Disposition Summary: 11/27/24 10:38 Discharge Ordered Notes: Location: Home(11/27/24 10:38) dr5 Condition: Stable(11/27/24 10:38) dr5 Diagnosis - Other specified noninfective gastroenteritis and colitis(11/27/24 10:38) dr5 - Dehydration dr5 Followup: dr5 - With: Emergency Department - When: As needed - Reason: Worsening of condition Followup: dr5 - With: Private Physician - When: 1 - 2 days - Reason: Recheck today's complaints, Continuance of care, Re-evaluation by your physician Discharge Instructions: - Discharge Summary Sheet dr5 - Dehydration, Adult dr5 - Colitis dr5 Forms: - Medication Reconciliation Form dr5 - Antibiotic Education dr5 - Prescription Opioid Use dr5 - Patient Portal Instructions dr5 - Leadership Thank You Letter dr5 Prescriptions: - Augmentin 875-125 mg Oral Tablet - take 1 tablet ORAL route every 12 hours for 10 days; 20 tablet; Refills: 0, dr5 Product Selection Permitted - Protonix 40 mg Oral Tablet - take 1 tablet ORAL route once daily; 30 tablet; Refills: 0, Product Selection dr5 Permitted - Tramadol 50 mg Oral Tablet - take 1 tablet ORAL route every 8 hours as needed; 12 tablet; Refills: 0, dr5 Product Selection Permitted - promethazine 25 mg Oral tablet - take 1 tablet ORAL route every 6 hours As needed; 20 tablet; Refills: 0, dr5 Product Selection Permitted Signatures: Dispatcher [employer] EDCheryl Brenner, RN RN iw Chester Coronado DO DO ms3 Agata Elder RN RN mb9 Srinivasan Naranjo, BAG MACHINE ADJUSTER-C BAG MACHINE ADJUSTER-Cdr5 Corrections: (The following items were deleted from the chart) 08:54 08:54 CBC+H.LAB.BRZ ordered. EDMS EDMS 08:54 08:54 COMPREHENSIVE METABOLIC PANEL+C.LAB.BRZ ordered. EDMS EDMS 08:54 08:54 LIPASE+C.LAB.BRZ ordered. EDMS EDMS 10:11 10:09 Home dr5 dr5 10:11 10:09 Stable dr5 dr5 10:11 10:09 Other specified noninfective gastroenteritis and colitis dr5 dr5
[2024-11-27] MEDS ORDERED: PROMETHAZINE INJ 25 MG/ML AMP ONE (10:12)
[2024-11-27] MEDS ORDERED: POTASSIUM 25 MEQ EFFERV TAB ONE (10:12)
[2024-11-27 11:14] VITALS: TEMP 98.4
[2024-11-27 11:15] VITALS: BP 131/82; O2SAT 100
== END 2024-11-27 10:54 | disposition home or self-care (01) ==
LOC: ER 08:36
DX: K52.89 Other specified noninfective gastroenteritis and colitis (principal); E86.0 Dehydration; R10.9 Unspecified abdominal pain; R11.2 Nausea with vomiting, unspecified; F32.A Depression, unspecified; I10 Essential (primary) hypertension; F20.9 Schizophrenia, unspecified; F17.210 Nicotine dependence, cigarettes, uncomplicated
CPT/HCPCS: 96361; 87088; 85025; 81001; 87086; 36415; 81025; 83690; 80053; 74177; 96375; 96372; 96374; 99284; Q9967; J2550; J2405; J7030; J1885

== ENCOUNTER 2024-12-02 00:37 | Emergency (ER) | payer OTHER ==
[2024-12-02] MEDS ORDERED: NA CHLORIDE 0.9% 1,000 ML ONE (01:47)
[2024-12-02] MEDS ORDERED: ONDANSETRON 4 MG/2 ML VIAL ONE (01:47)
[2024-12-02 02:35] LABS: Absolute Lymphocytes (CBC) 3.2 K/uL (0.7-4.9); Hematocrit 37.4 % (36.0-45.0); Hemoglobin 12.4 g/dL (12.0-15.0); MCH 34.4 pg (27.0-35.0); MCHC 33.1 g/dL (32.0-36.0); MCV 104.1 fL (80-100); MPV 7.7 fL (7.6-11.3); Nucleated RBC Absolute Count 0.0 (0-0); Nucleated Red Blood Cells % 0.0 % (0-0); RBC Red Blood Cell Count 3.60 M/uL (3.86-4.86); White Blood Count 14.50 thou/uL (4.3-10.9)
[2024-12-02 02:36] LABS: Urine Microscopic Reflex YN NO UMIC
[2024-12-02] MEDS ORDERED: MORPHINE 4 MG/ML SYR ONE (02:51)
[2024-12-02] MEDS ORDERED: METOCLOPRAMIDE 10 MG/2mL INJ ONE (02:51)
[2024-12-02 02:53] LABS: ALT/SGPT 25 U/L (13-56); Albumin 3.5 g/dL (3.4-5.0); Albumin/Globulin Ratio 1.0 (1.1-1.8); Alkaline Phosphatase 81 U/L (45-117); Anion Gap 10.3 mEq/L (5.0-15.0); BUN Blood Urea Nitrogen 23 mg/dL (7-18); Globulin 3.4 g/dL (2.3-3.5); Glucose Level 141 mg/dL (74-106); Lipase 26 U/L (13-75); Potassium 3.3 mEq/L (3.5-5.1)
[2024-12-02 03:00] LABS: AST/SGOT < 10 U/L (15-37)
[2024-12-02 03:01] LABS: METHAMPHETAM NEGATIVE (NEGATIVE); THC Cannibis NEGATIVE (NEGATIVE)
[2024-12-02] MEDS ORDERED: KETOROLAC 30 MG/ML INJ ONE (04:15)
--- NOTE | 2024-12-02 05:03 | EDPHYS ---
Physician Documentation [facility] Name: Shira Byers Age: 44 yrs Sex: Female : 1980 Arrival Date: 12/02/2024 Time: 00:37 Bed 7 Private MD: ED Physician Dom Vargas HPI: 12/02 02:29 This 44 yrs old Female presents to ER via Ambulatory with complaints of sp4 Nausea/Vomiting, Abdominal Cramping. 02:29 The patient presents to the emergency department with abdominal pain. cp 02:29 Onset: The symptoms/episode began/occurred Onset: The symptoms/episode began/occurred cp for months. 02:29 Possible causes: unknown. Associated signs and symptoms: Pertinent positives: nausea, cp vomiting. 02:29 Severity of symptoms: in the emergency department the symptoms are unchanged despite cp home interventions. Historical: - Allergies: 02:56 NKDA; kd3 - PMHx: 02:56 Bipolar disorder; Hypertensive disorder; Depression; Schizophrenia; ULCER; kd3 - PSHx: 02:56 tubal ligation; kd3 - Immunization history:: Adult Immunizations up to date. - Infectious Disease History:: Denies. - Social history:: Smoking status: Patient reports the use of cigarette tobacco products. ROS: 02:35 Constitutional: Negative for body aches, chills, fever, cp 02:35 Eyes: Negative for injury, pain, redness, and discharge, cp 02:35 Cardiovascular: Negative for chest pain, palpitations, 02:35 Respiratory: Negative for cough, shortness of breath, wheezing, 02:35 Abdomen/GI: Positive for abdominal pain, nausea, Negative for vomiting, diarrhea, constipation, Exam: 02:40 Constitutional: The patient appears in no acute distress, alert, awake, non-toxic, well cp developed, well nourished, 02:40 Head/Face: Normocephalic, atraumatic. cp 02:40 Eyes: Periorbital structures: appear normal, Conjunctiva: normal, no exudate, no injection, Sclera: no appreciated abnormality, Lids and lashes: appear normal, bilaterally, 02:40 ENT: External ear(s): are unremarkable, Nose: is normal, Mouth: Lips: moist, Oral mucosa: moist, Posterior pharynx: Airway: no evidence of obstruction, patent, 02:40 Chest/axilla: Inspection: normal, 02:40 Cardiovascular: Rate: tachycardic, Edema: is not appreciated, JVD: is not appreciated, 02:40 Respiratory: the patient does not display signs of respiratory distress, Respirations: normal, no use of accessory muscles, no retractions, labored breathing, is not present, Breath sounds: are clear throughout, no decreased breath sounds, no stridor, no wheezing, 02:40 Abdomen/GI: Inspection: abdomen appears normal, Bowel sounds: active, all quadrants, Palpation: soft, in all quadrants, 02:40 Neuro: Orientation: to person, place \T\ time. Mentation: is normal, 02:40 Special observations: complaints out of proportion to exam, 02:48 ECG was reviewed by the Attending Physician. Vital Signs: 01:17 BP 130 / 103; Pulse 130; Resp 18; Temp 98.1; Pulse Ox 100% ; Weight 52.62 kg; Height 5 cg ft. 2 in. ; Pain 10/10; 02:10 BP 126 / 90; Pulse 115; Resp 16; Pulse Ox 100% on R/A; kd3 04:53 BP 130 / 88; Pulse 104; Resp 16; Pulse Ox 98% on R/A; kd3 05:09 BP 125 / 91; Pulse 98; Resp 18 S; Temp 97.6; Pulse Ox 99% on R/A; ha1 01:17 Body Mass Index 21.22 (52.62 kg, 157.48 cm) cg 01:17 Pain Scale: Adult cg MDM: 01:25 Medical Screening Exam initiated cp 04:49 ED course: CONTRAST: As stated in examination. FINDINGS: SUPPORT DEVICES: None. LOWER sp4 CHEST: Normal. ABDOMEN/PELVIS: Liver: No acute finding. Gallbladder: Normal gallbladder. Biliary: No biliary ductal dilation. Pancreas: No pancreatitis. Spleen: Normal. Adrenal glands: No acute finding. Kidneys and ureters: No acute finding. Bladder: Urinary bladder distention is recognized. Reproductive organs: Normal for age. Stomach/bowel: Moderate stool burden throughout the colon is recognized particularly the right colon and transverse colon. Appendix: No appendicitis. Lymph nodes: No lymphadenopathy. Peritoneum: No intraperitoneal free air or significant fluid. Vessels: Normal for technique. MUSCULOSKELETAL: Abdominal wall: No hernia or soft tissue mass. Bones: No acute osseous abnormality. IMPRESSION: Urinary bladder distention. Constipation particularly the right and transverse colon. . 04:49 Data reviewed: vital signs, nurses notes. sp4 12/02 01:24 Order name: CBC with Diff; Complete Time: 02:46 cp 12/02 01:24 Order name: CMP; Complete Time: 04:23 cp 12/02 01:24 Order name: Lipase; Complete Time: 04:23 cp 12/02 01:24 Order name: UA Rfx Portillo Cult if indicated; Complete Time: 02:46 cp 12/02 01:24 Order name: Test, Urine; Complete Time: 04:23 cp 12/02 01:24 Order name: UDS; Complete Time: 04:23 cp 12/02 01:50 Order name: XRAY Chest (1 view) cp 12/02 02:48 Order name: CT Abd/Pelvis - IV Contrast Only cp 12/02 01:24 Order name: EKG; Complete Time: 01:25 cp 12/02 01:24 Order name: IV Saline Lock; Complete Time: 02:11 cp 12/02 01:24 Order name: Labs collected and sent; Complete Time: 02:11 cp 12/02 01:24 Order name: EKG - Nurse/Tech; Complete Time: 02:40 cp EC:48 Rate is 105 beats/min. Rhythm is regular. LA interval is normal. QRS interval is cp normal. QT interval is normal. T waves are Inverted in lead aVR. Interpreted by me. Reviewed by me. Administered Medications: 02:10 Drug: Droperidol IVP 1.25 mg IVP once Route: IVP; Site: left antecubital; kd3 02:30 Follow up: Response: No adverse reaction; Marked relief of symptoms; Pain is decreased ha1 02:11 Drug: Ondansetron IVP 4 mg IVP once; over 2 minutes Route: IVP; Site: left antecubital; kd3 02:30 Follow up: Response: No adverse reaction; Marked relief of symptoms ha1 02:11 Drug: NS 0.9% IV 1000 ml IV at 1 bolus Per protocol; to be given as a bolus over 60 kd3 minutes Route: IV; Rate: 1 bolus; Site: left antecubital; 05:10 Follow up: Response: No adverse reaction; IV Status: Completed infusion ha1 02:56 Drug: morphine IVP or IV 4 mg IVP once over 4 mins Route: IVP; Infused Over: 4 mins; kd3 Site: right antecubital; 03:30 Follow up: Response: No adverse reaction; Marked relief of symptoms; Pain is decreased; ha1 RASS: Alert and Calm (0) 02:56 Drug: metoCLOPramide IVP 10 mg IVP once; over 1 to 2 minutes Route: IVP; Site: right kd3 antecubital; 05:11 Follow up: Response: No adverse reaction; Marked relief of symptoms ha1 04:32 Drug: Ketorolac IVP 15 mg IVP once Route: IVP; Site: left antecubital; ha1 05:11 Follow up: Response: No adverse reaction; Marked relief of symptoms; Pain is decreased ha1 Disposition: 05:01 Co-signature as Attending Physician, Dom Vargas MD I agree with the assessment sp4 and plan of care. I reviewed the patient's care provided by Advanced Practice Provider \T\ agree w/ the diagnosis \T\ care plan. I personally saw the pt \T\ performed a substantive portion of the visit, incldng all aspects of the (History/Exam/Medical Decision Making). Disposition Summary: 12/02/24 05:02 Discharge Ordered Notes: Location: Home sp4 Problem: new sp4 Symptoms: have improved sp4 Condition: Stable sp4 Diagnosis - Slow transit constipation sp4 - Abdominal cramps, acute anxiety sp4 Followup: sp4 - With: Diego Landa MD - When: 7 - 10 days - Reason: Recheck today's complaints Discharge Instructions: - Discharge Summary Sheet sp4 - Constipation, Adult sp4 Forms: - Patient Portal Instructions sp4 Prescriptions: - meloxicam 15 mg Oral tablet - take 1 tablet ORAL route daily PRN pain; 30 tablet; Refills: 0, Product sp4 Selection Permitted - Valium 5 mg Oral tablet - take 1 tablet ORAL route once daily As needed PRN anxiety attacks; 12 tablet; sp4 Refills: 0, Product Selection Permitted - promethazine 25 mg Oral Tablet - take 1 tablet ORAL route every 6 hours As needed; 20 tablet; Refills: 0, sp4 Product Selection Permitted - dicyclomine 20 mg Oral tablet - take 1 tablet ORAL route every 8 hours PRN abdominal pain; 30 tablet; Refills: sp4 0, Product Selection Permitted Signatures: Dispatcher [employer] EDMS Frank Hernandez PA-C PA-C cp Doucette, Kyli, RN RN kd3 Ayse Fagan RN RN ha1 Dom Vargas MD MD sp4 Corrections: (The following items were deleted from the chart) 02:48 02:48 Abdomen Pelvis W Con+CT.RAD.BRZ ordered. EDMS EDMS 17:22 02:29 Onset: The symptoms/episode began/occurred baldev de paz
--- NOTE | 2024-12-02 05:03 | ER ---
Nurse's Notes [facility] Name: Shira Byers Age: 44 yrs Sex: Female : 1980 Arrival Date: 12/02/2024 Time: 00:37 Bed 7 Private MD: Diagnosis: Slow transit constipation;Abdominal cramps, acute anxiety Presentation: 12/02 01:17 Chief complaint: Patient states: c/o abdominal pain. Vomiting x 2-3. Pain is all over cg and been going on for months. Coronavirus screen: Vaccine status: Patient reports being unvaccinated. Ebola Screen: Patient negative for fever greater than or equal to 101.5 degrees Fahrenheit, and additional compatible Ebola Virus Disease symptoms. Initial Sepsis Screen: Does the patient meet any 2 criteria? No. Patient's initial sepsis screen is negative. Risk Assessment: Do you want to hurt yourself or someone else? Patient reports no desire to harm self or others. Onset of symptoms was September 2024. 01:17 Method Of Arrival: Ambulatory cg 01:17 Acuity: ADILSON 3 cg 02:58 Initial Sepsis Screen: Does the patient have a suspected source of infection? No. kd3 Patient's initial sepsis screen is negative. Triage Assessment: 02:58 General: Appears uncomfortable, Behavior is calm, cooperative. Neuro: Level of kd3 Consciousness is awake, alert, obeys commands, Oriented to person, place, time, situation. Cardiovascular: Capillary refill < 3 seconds Patient's skin is warm and dry. Respiratory: Airway is patent Trachea midline Respiratory effort is even, unlabored, Respiratory pattern is regular, symmetrical. GI: Reports upper abdominal pain. Historical: - Allergies: 02:56 NKDA; kd3 - PMHx: 02:56 Bipolar disorder; Hypertensive disorder; Depression; Schizophrenia; ULCER; kd3 - PSHx: 02:56 tubal ligation; kd3 - Immunization history:: Adult Immunizations up to date. - Infectious Disease History:: Denies. - Social history:: Smoking status: Patient reports the use of cigarette tobacco products. Screenin:57 [facility] ED Fall Risk Assessment (Adult) History of falling in the last 3 months, kd3 including since admission No falls in past 3 months (0 pts) Confusion or Disorientation No (0 pts) Intoxicated or Sedated No (0 pts) Impaired Gait No (0 pts) Mobility Assist Device Used No (0 pt) Altered Elimination No (0 pt) Score/Fall Risk Level 0 - 2 = Low Risk Maintained a safe environment. Abuse screen: Denies threats or abuse. Denies injuries from another. Nutritional screening: No deficits noted. Tuberculosis screening: No symptoms or risk factors identified. Assessment: 02:09 General: Appears uncomfortable, Behavior is anxious. Pain: Complains of pain in right kd3 upper quadrant and left upper quadrant. Neuro: Level of Consciousness is awake, alert, obeys commands, Oriented to person, place, time, situation. Cardiovascular: Capillary refill < 3 seconds Patient's skin is warm and dry. Respiratory: Airway is patent Trachea midline Respiratory effort is even, unlabored, Respiratory pattern is regular, symmetrical. GI: Abdomen is flat, non-distended. 03:20 Reassessment: Patient and/or family updated on plan of care and expected duration. Pain ha1 level reassessed. Patient is alert, oriented x 3, equal unlabored respirations, skin warm/dry/pink. 04:20 Reassessment: Patient and/or family updated on plan of care and expected duration. Pain ha1 level reassessed. Patient is alert, oriented x 3, equal unlabored respirations, skin warm/dry/pink. 05:09 Reassessment: Patient and/or family updated on plan of care and expected duration. Pain ha1 level reassessed. Patient is alert, oriented x 3, equal unlabored respirations, skin warm/dry/pink. Patient states feeling better. Patient states symptoms have improved. Vital Signs: 01:17 BP 130 / 103; Pulse 130; Resp 18; Temp 98.1; Pulse Ox 100% ; Weight 52.62 kg; Height 5 cg ft. 2 in. ; Pain 10/10; 02:10 BP 126 / 90; Pulse 115; Resp 16; Pulse Ox 100% on R/A; kd3 04:53 BP 130 / 88; Pulse 104; Resp 16; Pulse Ox 98% on R/A; kd3 05:09 BP 125 / 91; Pulse 98; Resp 18 S; Temp 97.6; Pulse Ox 99% on R/A; ha1 01:17 Body Mass Index 21.22 (52.62 kg, 157.48 cm) 01:17 Pain Scale: Adult cg ED Course: 00:43 Patient arrived in ED. gm2 00:56 Frank Hernandez [facility]C [facility]. cp 00:56 Dom Vargas MD is Attending Physician. cp 01:20 Triage completed. cg 01:37 Alana Guy, RN is Primary Nurse. kd3 02:08 No provider procedures requiring assistance completed. Inserted saline lock: 22 gauge kd3 in left antecubital area, using aseptic technique. Blood collected. Flushed with 10 mL NS. 02:10 UDS Sent. kd3 02:10 Test, Urine Sent. kd3 02:10 UA Rfx Portillo Cult if indicated Sent. kd3 02:11 CBC with Diff Sent. kd3 02:11 CMP Sent. kd3 02:11 Lipase Sent. kd3 02:34 XRAY Chest (1 view) In Process Unspecified. EDMS 02:57 Arm band placed on right wrist. kd3 02:58 Patient has correct armband on for positive identification. Provided Education on: kd3 narcotics and constipation . 03:38 CT Abd/Pelvis - IV Contrast Only In Process Unspecified. EDMS 05:01 Diego Landa MD is Referral Physician. sp4 05:12 IV discontinued, intact, bleeding controlled, No redness/swelling at site. Pressure ha1 dressing applied. Administered Medications: 02:10 Drug: Droperidol IVP 1.25 mg IVP once Route: IVP; Site: left antecubital; kd3 02:30 Follow up: Response: No adverse reaction; Marked relief of symptoms; Pain is decreased ha1 02:11 Drug: Ondansetron IVP 4 mg IVP once; over 2 minutes Route: IVP; Site: left antecubital; kd3 02:30 Follow up: Response: No adverse reaction; Marked relief of symptoms ha1 02:11 Drug: NS 0.9% IV 1000 ml IV at 1 bolus Per protocol; to be given as a bolus over 60 kd3 minutes Route: IV; Rate: 1 bolus; Site: left antecubital; 05:10 Follow up: Response: No adverse reaction; IV Status: Completed infusion ha1 02:56 Drug: morphine IVP or IV 4 mg IVP once over 4 mins Route: IVP; Infused Over: 4 mins; kd3 Site: right antecubital; 03:30 Follow up: Response: No adverse reaction; Marked relief of symptoms; Pain is decreased; ha1 RASS: Alert and Calm (0) 02:56 Drug: metoCLOPramide IVP 10 mg IVP once; over 1 to 2 minutes Route: IVP; Site: right kd3 antecubital; 05:11 Follow up: Response: No adverse reaction; Marked relief of symptoms ha1 04:32 Drug: Ketorolac IVP 15 mg IVP once Route: IVP; Site: left antecubital; ha1 05:11 Follow up: Response: No adverse reaction; Marked relief of symptoms; Pain is decreased ha1 Medication: 02:57 VIS not applicable for this client. kd3 Outcome: 05:02 Discharge ordered by . ebenezer 05:11 Discharged to home ambulatory, with family, ha1 05:11 Condition: stable 05:11 Discharge instructions given to patient, Instructed on discharge instructions, follow up and referral plans. medication usage, Demonstrated understanding of instructions, follow-up care, medications, Prescriptions given X 4, 05:12 Patient left the ED. ha1 Signatures: Dispatcher [employer] EDMS Frank Hernandez, PA-C PA-C Rowan Zapata RN RN Alana Guy RN RN kd3 Ayse Fagan RN RN ha1 Dom Vargas MD MD sp4 Rola Espino 2
[2024-12-02 05:22] VITALS: BP 125/91; TEMP 97.6; O2SAT 99
--- NOTE | 2024-12-02 06:03 | RAD REPORT ---
EXAMINATION: CT ABDOMEN PELVIS WITH IV CONTRAST INDICATION: 44 years old Female 1980 Abdominal pain. COMPARISON(S): CT Abdomen Pelvis 11/27/[address] Abdomen Pelvis 09/20/2024 (Only report available). TECHNIQUE: CT abdomen and pelvis. One or more of the following dose-optimizing techniques was utilize d for this exam: automated exposure control, adjustment of the mA and/or kV according to patient size, and/or use of iterative reconstruction technique. CONTRAST: As stated in examination. FINDINGS: SUPPORT DEVICES: None. LOWER CHEST: Normal. ABDOMEN/PELVIS: Liver: No acute finding. Gallbladder: Normal gallbladder. Biliary: No biliary ductal dilation. Pancreas: No pancreatitis. Spleen: Normal. Adrenal glands: No acute finding. Kidneys and ureters: No acute finding. Bladder: Urinary bladder distention is recognized. Reproductive organs: Normal for age. Stomach/bowel: Moderate stool burden throughout the colon is recognized particularly the right colon and transverse colon. Appendix: No appendicitis. Lymph nodes: No lymphadenopathy. Peritoneum: No intraperitoneal free air or significant fluid. Vessels: Normal for technique. MUSCULOSKELETAL: Abdominal wall: No hernia or soft tissue mass. Bones: No acute osseous abnormality. IMPRESSION: Urinary bladder distention. Constipation particularly the right and transverse colon. Electronically signed by: Leobardo Pugh MD 12/02/2024 04:38 AM CDT Due to temporary technical issues with the PACS/[employer] reporting system, reports are being yonatan d by the in-house radiologist without review as a courtesy to ensure prompt reporting the interpreting radiologist is fully responsible for the content of the report. Transcribed Date/Time: 12/02/2024 6:03 AM
--- NOTE | 2024-12-02 06:11 | RAD REPORT ---
EXAM: XR Chest, 1 View CLINICAL HISTORY: The patient is 44 years old and is Female; abdominal pain TECHNIQUE: Frontal view of the chest. COMPARISON: No relevant prior studies available. FINDINGS: LUNGS: Unremarkable. No consolidation. PLEURAL SPACE: Unremarkable. No pneumothorax. HEART: Unremarkable. No cardiomegaly. MEDIASTINUM: Unremarkable. Normal mediastinal contour. BONES/JOINTS: Unremarkable. No acute fracture. UPPER ABDOMEN: Unremarkable as visualized. IMPRESSION: No acute cardiopulmonary process. Electronically signed by: Criselda Bender MD 12/02/2024 02:53 AM CDT Due to temporary technical issues with the PACS/[employer] reporting system, reports are being yonatan d by the in-house radiologist without review as a courtesy to ensure prompt reporting the interpreting radiologist is fully responsible for the content of the report. Transcribed Date/Time: 12/02/2024 6:11 AM
== END 2024-12-02 05:12 | disposition home or self-care (01) ==
LOC: ER 00:37
DX: K59.01 Slow transit constipation (principal); R10.9 Unspecified abdominal pain; I10 Essential (primary) hypertension; F32.A Depression, unspecified; F20.9 Schizophrenia, unspecified; F17.210 Nicotine dependence, cigarettes, uncomplicated; F41.9 Anxiety disorder, unspecified; R11.2 Nausea with vomiting, unspecified
CPT/HCPCS: 93005; 85025; 36415; 81025; 81003; 83690; 80053; 80307; 74177; 71045; 99284; Q9967; J1885; J2765; J2405; J1790; J7030

== ENCOUNTER 2024-12-07 23:51 | Emergency (ER) | payer OTHER ==
[2024-12-08 01:01] LABS: Absolute Lymphocytes (CBC) 2.4 K/uL (0.7-4.9); Hematocrit 32.5 % (36.0-45.0); Hemoglobin 10.8 g/dL (12.0-15.0); MCH 34.3 pg (27.0-35.0); MCHC 33.4 g/dL (32.0-36.0); MCV 102.8 fL (80-100); MPV 7.3 fL (7.6-11.3); Nucleated RBC Absolute Count 0.0 (0-0); Nucleated Red Blood Cells % 0.0 % (0-0); RBC Red Blood Cell Count 3.16 M/uL (3.86-4.86); White Blood Count 13.30 thou/uL (4.3-10.9)
[2024-12-08 01:08] LABS: Urine Crystals Unidentified Few /HPF (None Seen); Urine Culture Reflex Order NOT NEEDED; Urine Microscopic Reflex YN ORDER UMIC; Urine Yeast (Budding) Few /HPF (None Seen)
[2024-12-08] MEDS ORDERED: NA CHLORIDE 0.9% 1,000 ML ONE ×2 (01:08→01:16)
[2024-12-08 01:12] LABS: METHAMPHETAM NEGATIVE (NEGATIVE); PT Prothrombin Time 11.5 SECONDS (10-13.0); PTT, Activated Partial Thromb 32.9 SECONDS (27.2-37.4); Protime INR 1.02; THC Cannibis NEGATIVE (NEGATIVE)
[2024-12-08] MEDS ORDERED: LORazepam 2 MG/ML VIAL ONE (01:16)
[2024-12-08 01:27] LABS: ALT/SGPT 32.0 U/L (13-56); AST/SGOT 19.0 U/L (15-37); Albumin 3.6 g/dL (3.4-5.0); Albumin/Globulin Ratio 0.9 (1.1-1.8); Alkaline Phosphatase 98.0 U/L (45-117); Anion Gap 11.2 mEq/L (5.0-15.0); BUN Blood Urea Nitrogen 13.0 mg/dL (7-18); Globulin 4.0 g/dL (2.3-3.5); Glucose Level 104.0 mg/dL (74-106); NT PRO-BNP 67.0 pg/mL (<125); Potassium 3.2 mEq/L (3.5-5.1); Troponin High Sensitivity 5.9 pg/mL (<58.9)
[2024-12-08] MEDS ORDERED: PANTOPRAZOLE 40 MG INJ ONE (01:27)
[2024-12-08] MEDS ORDERED: NA CHLORIDE 0.9% 100 ML ONE (01:27)
[2024-12-08] MEDS ORDERED: NA CHLORIDE 0.9% 250 ML ONE (01:29)
--- NOTE | 2024-12-08 03:32 | EDPHYS ---
Physician Documentation [facility] Name: Shira Byers Age: 44 yrs Sex: Female : 1980 Arrival Date: 12/07/2024 Time: 23:51 Bed 6 Private MD: FER Physician Frank Dominique HPI: 12/08 00:05 This 44 yrs old Female presents to ER via Ambulatory with complaints of Vomiting Blood. cp 00:05 The patient presents to the emergency department vomiting blood, a moderate amount, cp bright red, with multiple such episodes, with rectal bleeding, melena. Onset: The symptoms/episode began/occurred today. Abdominal pain: described as crampy. Associated signs and symptoms: Pertinent negatives: chest pain, constipation, diarrhea, fever, shortness of breath. Severity of symptoms: in the emergency department the symptoms are unchanged despite home interventions. previous history of upper GI bleed. 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 Flu vaccine is not up to date. - Infectious Disease History:: Denies. - Social history:: Smoking status: Patient reports the use of cigarette tobacco products, smokes one-half pack cigarettes per day, Reported history of juuling and/or vaping. ROS: 00:10 Constitutional: Negative for body aches, chills, fever, poor PO intake, cp 00:10 Cardiovascular: Negative for chest pain, edema, palpitations, cp 00:10 Respiratory: Negative for cough, shortness of breath, 00:10 Eyes: Negative for injury, pain, redness, and discharge, cp 00:10 Abdomen/GI: Positive for abdominal pain, hematemesis, black/tarry stool, 00:10 ENT: Negative for drainage from ear(s), ear pain, sore throat, difficulty swallowing, cp difficulty handling secretions, 00:10 : Negative for urinary symptoms, 00:10 Neuro: Negative for altered mental status, dizziness, headache, syncope, near syncope, 00:10 All other systems are negative, Exam: 00:15 Constitutional: The patient appears in no acute distress, alert, awake, cp non-diaphoretic, non-toxic, well developed, well nourished, 00:15 Head/Face: Normocephalic, atraumatic. cp 00:15 Eyes: Periorbital structures: appear normal, Conjunctiva: normal, no exudate, no injection, Sclera: no appreciated abnormality, Lids and lashes: appear normal, bilaterally, 00:15 ENT: External ear(s): are unremarkable, Nose: is normal, Mouth: Lips: moist, Oral mucosa: moist, 00:15 Chest/axilla: Inspection: normal, 00:15 Cardiovascular: Rate: tachycardic, Rhythm: regular, Edema: is not appreciated, JVD: is not appreciated, 00:15 Respiratory: the patient does not display signs of respiratory distress, Respirations: normal, no use of accessory muscles, no retractions, labored breathing, is not present, Breath sounds: are clear throughout, no decreased breath sounds, no stridor, no wheezing, 00:15 Abdomen/GI: Inspection: abdomen appears normal, Bowel sounds: active, all quadrants, Palpation: soft, in all quadrants, mild abdominal tenderness, in all quadrants, Rectal exam: Stool: black, 00:15 Back: pain, is absent, ROM is normal, 00:15 Neuro: Orientation: to person, place \T\ time. Mentation: is normal, Motor: moves all fours, strength is normal, Sensation: is normal, 01:12 ECG was reviewed by the Attending Physician. cp Vital Signs: 12/07 23:59 Weight 52.16 kg; Height 5 ft. 2 in. ; vc1 12/08 00:02 BP 137 / 100; Pulse 138; Resp 24; Temp 98.3; Pulse Ox 100% ; vc1 00:53 BP 146 / 105; Pulse 121; Resp 22; Pulse Ox 100% ; cp4 01:15 BP 132 / 92; Pulse 120; Resp 26; Pulse Ox 100% ; vc1 01:45 BP 147 / 83; Pulse 115; Resp 23; Pulse Ox 94% ; vc1 03:00 BP 140 / 94; Pulse 96; Resp 20; Pulse Ox 100% ; vc1 04:00 BP 126 / 96; Pulse 99; Resp 20; Pulse Ox 99% ; vc1 04:45 BP 130 / 92; Pulse 97; Resp 20; Pulse Ox 100% ; vc1 05:45 BP 120 / 94; Pulse 101; Resp 18; Pulse Ox 99% ; vc1 06:30 BP 119 / 87; Pulse 100; Resp 18; Pulse Ox 99% ; vc1 12/07 23:59 Body Mass Index 21.03 (52.16 kg, 157.48 cm) vc1 MDM: 12/07 23:58 Medical Screening Exam initiated 12/08 00:00 Differential diagnosis: gastritis, diverticulitis, hemorrhoids, hemorrhagic shock, cp varices, anemia. 03:30 Management of patient was discussed with the following: Hospitalist: DR Salmon at [facility] will accept patient as transfer once results of CT are available. 03:35 Data reviewed: vital signs, nurses notes, lab test result(s), EKG, radiologic studies, plain films, and as a result, I will transfer patient. 03:35 I considered the following discharge prescriptions or medication management in the emergency department Medications were administered in the Emergency Department. See MAR. Independent interpretation of the following test(s) in the Emergency Department EKG: See my EKG interpretation above. Care significantly affected by the following chronic conditions: Hypertension. Counseling: I had a detailed discussion with the patient and/or guardian regarding the historical points, exam findings, and any diagnostic results supporting the discharge/admit diagnosis, lab results, radiology results, the need to transfer to another facility, [facility] does not immediately have the required specialist. Response to treatment: the patient's symptoms have mildly improved after treatment. Awaiting: CT scan results. 12/08 00:10 Order name: BNP; Complete Time: 12/08 00:10 Order name: Blood Culture Adult (2) 12/08 00:10 Order name: CBC with Diff; Complete Time: : 12/08 01:21 Interpretation: Normal except: WBC 13.30; RBC 3.16; HGB 10.8; HCT 32.5; MCV 102.8; PLT cp 602; RDW 15.6; NEUT A 9.6. 12/08 00:10 Order name: CMP; Complete Time: : 12/08 01:41 Interpretation: Normal except: K 3.2; GFR 79; GLOB 4.0; A/G 0.9. cp 12/08 00:10 Order name: Lactate w/ 2H reflex if indic.; Complete Time: 01:41 cp 12/08 00:10 Order name: Protime (+inr); Complete Time: 01:21 cp 12/08 00:10 Order name: Ptt, Activated; Complete Time: 01:21 cp 12/08 00:10 Order name: Troponin HS; Complete Time: :41 cp 12/08 00:11 Order name: UA Rfx Portillo Cult if indicated; Complete Time: 01:21 cp 12/08 01:42 Interpretation: Normal except: [facility] Extremely Turbid; UPH 8.0; UESTR 25; BYST Few. cp 12/08 00:11 Order name: Test, Urine; Complete Time: :21 cp 12/08 00:11 Order name: UDS; Complete Time: :21 cp 12/08 00:45 Order name: Test, Serum; Complete Time: 01:21 vc1 12/08 01:10 Order name: Glucose, Ancillary Testing; Complete Time: 01:21 EDMS 12/08 00:10 Order name: Chest Single View XRAY cp 12/08 01:25 Order name: CT Abdomen - Angio cp 12/08 01:25 Order name: CT Pelvis Angio cp 12/08 01:46 Order name: Abdomen EDMS 12/08 00:10 Order name: EKG; Complete Time: 00:11 cp 12/08 00:10 Order name: Accucheck; Complete Time: 01:04 cp 12/08 00:10 Order name: Cardiac monitoring; Complete Time: 01:04 cp 12/08 00:10 Order name: EKG - Nurse/Tech; Complete Time: 01:04 cp 12/08 00:10 Order name: IV Saline Lock - Large Bore; Complete Time: 00:46 cp 12/08 00:10 Order name: Labs collected and sent; Complete Time: 00:46 cp 12/08 00:10 Order name: O2 Per Protocol; Complete Time: 00:46 cp 12/08 00:10 Order name: O2 Sat Monitoring; Complete Time: 00:46 cp 12/08 00:10 Order name: Vital Signs; Complete Time: 00:46 cp EC:12 Rate is 121 beats/min. Rhythm is regular. [place] interval is normal. QRS interval is cp normal. QT interval is normal. T waves are Inverted in lead aVR. Interpreted by me. Reviewed by me. Administered Medications: 01:11 Drug: NS 0.9% IV 1000 ml IV at 1000 ml once; to be given as a bolus over 60 minutes cp4 Route: IV; Rate: 1000 ml; Site: right antecubital; 02:00 Follow up: IV Status: Completed infusion; IV Intake: 1000ml vc1 01:17 Drug: NS 0.9% IV 1000 ml IV at 1000 ml once; to be given as a bolus over 60 minutes cp4 Route: IV; Rate: 1000 ml; Site: right antecubital; 02:30 Follow up: IV Status: Completed infusion; IV Intake: 1000ml vc1 01:17 Drug: Ativan IVP 1 mg IVP once Route: IVP; Site: right antecubital; cp4 01:44 Follow up: Response: No adverse reaction; Anxiety unchanged cp4 01:43 Drug: Pantoprazole IVP 40 mg IVP once Route: IVP; Site: right antecubital; cp4 02:00 Follow up: Response: No adverse reaction vc1 01:43 Drug: Pantoprazole IVP 40 mg IVP once Route: IVP; Site: right antecubital; cp4 02:00 Follow up: Response: No adverse reaction vc1 01:44 Drug: Pantoprazole IV 8 mg/hr IV at 25 ml/hr continuous; (Standard dilution is 80 mg in cp4 250 mL NS) Route: IV; Rate: 25 ml/hr; Site: right antecubital; 06:44 Follow up: IV Status: Infusion continued upon transfer vc1 Disposition Summary: 12/08/24 03:31 Transfer Ordered Notes: Transfer Location: [facility] cp Reason: Higher level of care cp Condition: Stable cp Problem: new cp Symptoms: have improved cp Accepting Physician: DR Salmon(12/08/24 07:44) ll1 Diagnosis - Melena cp - Hematemesis cp Forms: - Medication Reconciliation Form cp - SBAR form cp Addendum: 12/11/2024 06:52 Co-signature as Attending Physician, Frank Dominique MD I agree with the assessment and c ortiz plan of care. Signatures: Dispatcher [employer] EDFrank Sarkar MD MD cha Page, Corey, PA-C PA-Dino Baxter cp RN RN ll1 Jana Tejeda RN RN vc1 Lois Turpin cp4 Corrections: (The following items were deleted from the chart) 12/08 00:12 00:12 UA Rfx Portillo Cult if indicated+U.LAB.BRZ ordered. EDMS EDMS 00: 00:12 Test, Urine+UC.LAB.BRZ ordered. EDMS EDMS 00: 00:12 URINE DRUG SCREEN+UC.LAB.BRZ ordered. EDMS EDMS 04:58 03:31 doctor cp cp 07:44 04:58 DR Salmon cp ll1
--- NOTE | 2024-12-08 03:32 | ER ---
Nurse's Notes [facility] Name: Shira Byers Age: 44 yrs Sex: Female : 1980 Arrival Date: 12/07/2024 Time: 23:51 Bed 6 Private MD: Diagnosis: Melena;Hematemesis Presentation: 12/07 23:59 Chief complaint: Patient states: vomiting blood. Coronavirus screen: Client denies vc1 travel out of the [place] in the last 14 days. At this time, the client does not indicate any symptoms associated with coronavirus-19. Ebola Screen: Patient negative for fever greater than or equal to 101.5 degrees Fahrenheit, and additional compatible Ebola Virus Disease symptoms Patient denies exposure to infectious person. Patient denies travel to an Ebola-affected area in the 21 days before illness onset. No symptoms or risks identified at this time. Initial Sepsis Screen: Does the patient meet any 2 criteria? No. Patient's initial sepsis screen is negative. Does the patient have a suspected source of infection? No. Patient's initial sepsis screen is negative. Risk Assessment: Do you want to hurt yourself or someone else? Patient reports no desire to harm self or others. Onset of symptoms was December 07, 2024. 23:59 Method Of Arrival: Ambulatory vc1 23:59 Acuity: ADILSON 3 vc1 Triage Assessment: 12/08 00:01 General: Appears in no apparent distress. comfortable, Behavior is cooperative. Pain: vc1 Denies pain. EENT: No deficits noted. No signs and/or symptoms were reported regarding the EENT system. Neuro: Level of Consciousness is awake, alert, obeys commands, Oriented to person, place, time, situation, Appropriate for age. Cardiovascular: Capillary refill < 3 seconds Patient's skin is warm and dry. Respiratory: Airway is patent Respiratory effort is even, unlabored, Respiratory pattern is regular, symmetrical. GI: Reports vomitng blood and black tarry stools. 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 Flu vaccine is not up to date. - Infectious Disease History:: Denies. - Social history:: Smoking status: Patient reports the use of cigarette tobacco products, smokes one-half pack cigarettes per day, Reported history of juuling and/or vaping. Screenin:00 [facility] ED Fall Risk Assessment (Adult) History of falling in the last 3 months, vc1 including since admission No falls in past 3 months (0 pts) Confusion or Disorientation No (0 pts) Intoxicated or Sedated No (0 pts) Impaired Gait No (0 pts) Mobility Assist Device Used No (0 pt) Altered Elimination No (0 pt) Score/Fall Risk Level 0 - 2 = Low Risk Oriented to surroundings, Maintained a safe environment, Educated pt \T\ family on fall prevention, incl call for assistance when getting out of bed, Assessed \T\ reinforced patient's understanding of fall precautions, Hourly rounding (assess needs \T\ fall precautionary measures) done. Abuse screen: Denies threats or abuse. Nutritional screening: No deficits noted. Tuberculosis screening: No symptoms or risk factors identified. Assessment: 00:25 General: Appears in no apparent distress. comfortable, well groomed, Behavior is vc1 cooperative, anxious. Pain: Denies pain. Neuro: Level of Consciousness is awake, alert, obeys commands, Oriented to person, place, time, situation, Appropriate for age. Cardiovascular: Heart tones S1 S2 present Capillary refill < 3 seconds Patient's skin is warm and dry. Respiratory: Airway is patent Respiratory effort is even, unlabored, Respiratory pattern is regular, symmetrical, Breath sounds are clear bilaterally. GI: Abdomen is flat, non-distended, Reports diarrhea, bloody stool, vomiting, vomiting blood Patient currently denies abdominal pain. : No deficits noted. No signs and/or symptoms were reported regarding the genitourinary system. EENT: No deficits noted. No signs and/or symptoms were reported regarding the EENT system. Derm: Skin is intact, is healthy with good turgor, Skin is dry, Skin is normal, Skin temperature is warm. Musculoskeletal: Circulation, motion, and sensation intact. Range of motion: intact in all extremities. 01:29 Reassessment: Patient appears in no apparent distress at this time. No changes from vc1 previously documented assessment. Patient and/or family updated on plan of care and expected duration. Pain level reassessed. Patient is alert, oriented x 3, equal unlabored respirations, skin warm/dry/pink. 03:00 Reassessment: Patient appears in no apparent distress at this time. No changes from vc1 previously documented assessment. Patient and/or family updated on plan of care and expected duration. Pain level reassessed. Patient is alert, oriented x 3, equal unlabored respirations, skin warm/dry/pink. 03:13 Reassessment: Patient appears in no apparent distress at this time. Patient and/or vc1 family updated on plan of care and expected duration. Pain level reassessed. Patient is alert, oriented x 3, equal unlabored respirations, skin warm/dry/pink. Patient states symptoms have improved. 04:47 Reassessment: Patient appears in no apparent distress at this time. No changes from vc1 previously documented assessment. Patient and/or family updated on plan of care and expected duration. Pain level reassessed. Patient is alert, oriented x 3, equal unlabored respirations, skin warm/dry/pink. 06:30 Reassessment: Patient appears in no apparent distress at this time. Patient and/or vc1 family updated on plan of care and expected duration. Pain level reassessed. Patient states feeling better. Patient states symptoms have improved. 06:42 General: Report called to Agata at [facility]. vc1 Vital Signs: 12/07 23:59 Weight 52.16 kg; Height 5 ft. 2 in. ; vc1 12/08 00:02 BP 137 / 100; Pulse 138; Resp 24; Temp 98.3; Pulse Ox 100% ; vc1 00:53 BP 146 / 105; Pulse 121; Resp 22; Pulse Ox 100% ; cp4 01:15 BP 132 / 92; Pulse 120; Resp 26; Pulse Ox 100% ; vc1 01:45 BP 147 / 83; Pulse 115; Resp 23; Pulse Ox 94% ; vc1 03:00 BP 140 / 94; Pulse 96; Resp 20; Pulse Ox 100% ; vc1 04:00 BP 126 / 96; Pulse 99; Resp 20; Pulse Ox 99% ; vc1 04:45 BP 130 / 92; Pulse 97; Resp 20; Pulse Ox 100% ; vc1 05:45 BP 120 / 94; Pulse 101; Resp 18; Pulse Ox 99% ; vc1 06:30 BP 119 / 87; Pulse 100; Resp 18; Pulse Ox 99% ; vc1 12/07 23:59 Body Mass Index 21.03 (52.16 kg, 157.48 cm) vc1 ED Course: 12/07 23:54 Patient arrived in ED. mr 23:58 Frank [facility]-C [facility]. cp 23:58 Frank Dominique MD is Attending Physician. cp 23:59 Triage completed. vc1 12/08 00:00 Arm band placed on right wrist. vc1 00:15 Patient has correct armband on for positive identification. Placed in gown. Bed in low vc1 position. Call light in reach. Adult w/ patient. Provided Education on: Plan of care. bronzer on. Pulse ox on. NIBP on. 00:40 Inserted saline lock: 20 gauge in right antecubital area, using aseptic technique. vc1 Blood collected. Flushed with 10 mL NS. 00:45 Jana Tejeda, RN is Primary Nurse. vc1 00:53 Chest Single View XRAY In Process Unspecified. EDMS 01:55 EKG done, by ED staff, reviewed by Frank Hernandez PA-C. oe 02:26 CT Abdomen - Angio In Process Unspecified. EDMS 02:26 CT Pelvis Angio In Process Unspecified. EDMS 02:26 Abdomen In Process Unspecified. EDMS 04:13 Initiated transfer with Norma at [facility]. rv1 06:11 administrative approval given to [facility] by Norma Coronel / patient has been accepted to [facility] bed 1450/ Dr. Jennifer Salmon has accepted the patient in transfer/ report to be called to [phone]. Administered Medications: 01:11 Drug: NS 0.9% IV 1000 ml IV at 1000 ml once; to be given as a bolus over 60 minutes cp4 Route: IV; Rate: 1000 ml; Site: right antecubital; 02:00 Follow up: IV Status: Completed infusion; IV Intake: 1000ml vc1 01:17 Drug: NS 0.9% IV 1000 ml IV at 1000 ml once; to be given as a bolus over 60 minutes cp4 Route: IV; Rate: 1000 ml; Site: right antecubital; 02:30 Follow up: IV Status: Completed infusion; IV Intake: 1000ml vc1 01:17 Drug: Ativan IVP 1 mg IVP once Route: IVP; Site: right antecubital; cp4 01:44 Follow up: Response: No adverse reaction; Anxiety unchanged cp4 01:43 Drug: Pantoprazole IVP 40 mg IVP once Route: IVP; Site: right antecubital; cp4 02:00 Follow up: Response: No adverse reaction vc1 01:43 Drug: Pantoprazole IVP 40 mg IVP once Route: IVP; Site: right antecubital; cp4 02:00 Follow up: Response: No adverse reaction vc1 01:44 Drug: Pantoprazole IV 8 mg/hr IV at 25 ml/hr continuous; (Standard dilution is 80 mg in cp4 250 mL NS) Route: IV; Rate: 25 ml/hr; Site: right antecubital; 06:44 Follow up: IV Status: Infusion continued upon transfer vc1 Medication: 01:30 VIS not applicable for this client. vc1 Intake: 02:00 IV: 1000ml; Total: 1000ml. vc1 02:30 IV: 1000ml; Total: 2000ml. vc1 Outcome: 03:31 ER care complete, transfer ordered by MD. cp 07:44 Patient left the ED. ll1 Signatures: Dispatcher [employer] EDMS RodríguezAgata nickerson, Harry Reg mr Frank Hernandez, PA-C PA-C Henry Kapoor Elizabeth eb Lewis, Lynsay, RN RN ll1 Jana Tejeda RN RN vc1 Susan Gallagher Lois Smith cp4 Corrections: (The following items were deleted from the chart) 02:11 01:55 EKG done, by ED staff, tatiana simpson
--- NOTE | 2024-12-08 03:37 | RAD REPORT ---
EXAM: XR Chest, 1 View CLINICAL HISTORY: hematemesis TECHNIQUE: Frontal view of the chest. COMPARISON: XR Chest dated 12/02/2024 FINDINGS: Lungs: Unremarkable. No consolidation. Pleural space: Unremarkable. No pneumothorax. Heart: Unremarkable. No cardiomegaly. Mediastinum: Unremarkable. Normal mediastinal contour. Bones/joints: Unremarkable. No acute fracture. IMPRESSION: No acute disease. Electronically signed by: Norma Velasquez MD 12/08/2024 03:32 AM CDT Due to temporary technical issues with the PACS/[employer] reporting system, reports are being yonatan d by the in-house radiologist without review as a courtesy to ensure prompt reporting the interpreting radiologist is fully responsible for the content of the report. Transcribed Date/Time: 12/08/2024 3:36 AM
--- NOTE | 2024-12-08 05:44 | RAD REPORT ---
EXAM DESCRIPTION: Abdomen Pelvis W/Wo Contrast (accession [id number]), Pelvis Angio (accession [id number]) CLINICAL HISTORY: GI BLEED COMPARISON: None TECHNIQUE: Contiguous axial sections of the abdomen and pelvis were obtained prior to and following administrati on of intravenous contrast. Subsequently, CT angiogram of the pelvis was performed with sagittal and coronal reconstruction images as well as maximum intensity projection images. Sagittal and salazar l reformatted images are generated for review. This exam was performed according to our departmental dose-optimization program, which includes automated exposure control, adjustment of the mA and/or kV according to patient size and/or use of iterative reconstruction technique. FINDINGS: Lower Chest: The imaged lung bases are clear. No pleural or pericardial effusion. Organs: The liver, spleen, gallbladder, pancreas, and adrenal glands are normal. The kidneys are in tact. GI/Bowel: There are no findings of small bowel obstruction. No acute bowel wall inflammatory changes. The appendix is normal. The colon is fluid-filled with multiple air-fluid levels and scattered fecal debris. Correlate clinical features of diarrheal disease. No acute bowel wall thickening or inf lammation. Pelvis: The bladder is normal. The rectum is normal. No pelvic free fluid. No pelvic lymphadenopathy. Peritoneum/Retroperitoneum: No free fluid or free air. No mesenteric or retroperitoneal lymphadenopat hy. Bones/Soft Tissues: There are no suspicious lytic or blastic osseous lesions. CTA PELVIS: The bilateral common, internal and external iliac arteries are intact. No dissection, aneurysm or hannah nosis. No active extravasation of contrast is appreciated within the visualized small, large bowel, or rectu m. IMPRESSION: 1. No active GI bleed. 2. Fluid-filled colon with multiple air-fluid levels. Correlate clinical features of diarrheal dise ase. 3. Nonspecific distal esophageal wall thickening may reflect underdistention or esophagitis in the correct clinical setting. No evidence RECOMMENDATIONS: Electronically signed by: Chandler Solorzano MD 12/08/2024 05:34 AM CDT Due to temporary technical issues with the PACS/[employer] reporting system, reports are being yonatan d by the in-house radiologist without review as a courtesy to ensure prompt reporting the interpreting radiologist is fully responsible for the content of the report. Transcribed Date/Time: 12/08/2024 5:44 AM
--- NOTE | 2024-12-08 05:44 | RAD REPORT ---
EXAM DESCRIPTION: Abdomen Pelvis W/Wo Contrast (accession [id number]), Pelvis Angio (accession [id number]) CLINICAL HISTORY: GI BLEED COMPARISON: None TECHNIQUE: Contiguous axial sections of the abdomen and pelvis were obtained prior to and following administrati on of intravenous contrast. Subsequently, CT angiogram of the pelvis was performed with sagittal and coronal reconstruction images as well as maximum intensity projection images. Sagittal and salazar l reformatted images are generated for review. This exam was performed according to our departmental dose-optimization program, which includes automated exposure control, adjustment of the mA and/or kV according to patient size and/or use of iterative reconstruction technique. FINDINGS: Lower Chest: The imaged lung bases are clear. No pleural or pericardial effusion. Organs: The liver, spleen, gallbladder, pancreas, and adrenal glands are normal. The kidneys are in tact. GI/Bowel: There are no findings of small bowel obstruction. No acute bowel wall inflammatory changes. The appendix is normal. The colon is fluid-filled with multiple air-fluid levels and scattered fecal debris. Correlate clinical features of diarrheal disease. No acute bowel wall thickening or inf lammation. Pelvis: The bladder is normal. The rectum is normal. No pelvic free fluid. No pelvic lymphadenopathy. Peritoneum/Retroperitoneum: No free fluid or free air. No mesenteric or retroperitoneal lymphadenopat hy. Bones/Soft Tissues: There are no suspicious lytic or blastic osseous lesions. CTA PELVIS: The bilateral common, internal and external iliac arteries are intact. No dissection, aneurysm or hannah nosis. No active extravasation of contrast is appreciated within the visualized small, large bowel, or rectu m. IMPRESSION: 1. No active GI bleed. 2. Fluid-filled colon with multiple air-fluid levels. Correlate clinical features of diarrheal dise ase. 3. Nonspecific distal esophageal wall thickening may reflect underdistention or esophagitis in the correct clinical setting. No evidence RECOMMENDATIONS: Electronically signed by: Chandler Solorzano MD 12/08/2024 05:34 AM CDT Due to temporary technical issues with the PACS/[employer] reporting system, reports are being yonatan d by the in-house radiologist without review as a courtesy to ensure prompt reporting the interpreting radiologist is fully responsible for the content of the report. Transcribed Date/Time: 12/08/2024 5:44 AM
--- NOTE | 2024-12-08 05:45 | RAD REPORT ---
CLINICAL HISTORY: melena, hematemesis COMPARISON: 12/02/2024. TECHNIQUE: CT ABDOMEN WITH IV CONTRAST on 12/08/2024 1:25 AM CDT This exam was performed according to our departmental dose-optimization program, which includes autom ated exposure control, adjustment of the mA and/or kV according to patient size and/or use of iterative reconstruction technique. The study was performed according to an angiographic protocol wit h 3D post-processing. This involves 3D reconstructions, MIPs, volume rendered images and/or shaded surface rendering. FINDINGS: Lower lungs are clear. Abdomen: The liver is normal in appearance. There is no biliary dilatation. Gallbladder is normal in appearance. The pancreas and spleen are normal in appearance. Adrenal glands and right kidney are normal. Anterior mid pole left renal cyst measures 2.7 cm. There is no hydronephrosis. Abdominal aorta is normal in course and caliber without aneurysm. There is no free air. There is no r etroperitoneal adenopathy. Pelvis: There is large amount of stool throughout the colon diffusely. Urinary bladder is unremarkabl e. There is no free fluid. Uterus is suboptimally visualized. Appendix is not clearly seen. Skeleton: There are no acute osseous findings. No suspicious bony lesions. IMPRESSION: No definite acute inflammatory process. Left Bosniak I benign renal cyst measuring 2.7 cm. No follow-up imaging is recommended. JACR 2018 Mar ; 264-273, Management of the Incidental Renal Mass on CT, [employer] 2020; [id number], Bosniak Classification of Cystic Renal Masses, Version 2019. Electronically signed by: Sedrick Smyth MD 12/08/2024 05:22 AM CDT Due to temporary technical issues with the PACS/[employer] reporting system, reports are being yonatan d by the in-house radiologist without review as a courtesy to ensure prompt reporting the interpreting radiologist is fully responsible for the content of the report. Transcribed Date/Time: 12/08/2024 5:44 AM
[2024-12-08 11:39] VITALS: TEMP 98.3
[2024-12-08 11:50] VITALS: O2SAT 99
[2024-12-08 11:52] VITALS: BP 119/87
== END 2024-12-08 07:44 | disposition short-term general hospital (02) ==
LOC: ER 23:51
DX: K92.0 Hematemesis (principal); K92.1 Melena; F17.210 Nicotine dependence, cigarettes, uncomplicated
CPT/HCPCS: 96365; 96361; 93005; 87040 ×2; 85025; 81001; 36415; 84703; 81025; 85610; 82947; 83605; 85730; 84484; 80053; 83880; 80307; 72191; 74175; 74178; 71045; 96375; 99285; 96366; Q9967; J2470; J7050; J7030 ×2